=== PATIENT | female | born 1945 | race Caucasian/White ===

== ENCOUNTER → 2016-11-29 | Outpatient (CLI) | payer BC ==
[~2016-11-29] MED LIST: ASPI81TA28 PO; ATOR-22 PO; CRDCD120 PO; POLY335019 PO; POTASSIUM CITRATE PO; VITAMIN D PO
[2016-11-29 12:20] LABS: BASO % 0.6 %; BASO ABS # 0.04 K/uL (0-0.2); COMPLETE YES; EOS % 2.6 %; HEMATOCRIT 43.2 % (37-47); IG% 0.1 %; LYMPH % 35.7 %; LYMPH ABS # 2.56 K/uL (1.2-3.4); MEAN CELL VOLUME 91.7 fL (80-100); MEAN CORPUSCULAR HEMOGLOBIN 31.4 pg (25-34); MEAN CORPUSCULAR HGB CONC 34.3 g/dl (32-36); MEAN PLATELET VOLUME 9.7 fL (7.4-10.4); MONO % 11.7 %; NEUT % 49.3 %; PLATELET COUNT 339 K/uL (130-400); RED BLOOD COUNT 4.71 M/uL (4.2-5.4); WHITE BLOOD COUNT 7.17 K/uL (4.8-10.8)
[2016-11-29 12:59] LABS: ESTIMATED AVERAGE GLUCOSE 120 mg/dl; HA1C FLAG Normal (Normal)
[2016-11-29 14:45] LABS: BLOOD UREA NITROGEN 23 mg/dl (7-18); BUN/CREATININE RATIO 24.1 (10-20); CALCIUM 8.8 mg/dl (8.5-10.1); CARBON DIOXIDE 23 mmol/L (21-32); CHLORIDE 109 mmol/L (98-107); CREATININE 0.94 mg/dl (0.60-1.20); GLUCOSE 100 mg/dl (70-99); POTASSIUM 3.8 mmol/L (3.5-5.1); SODIUM 143 mmol/L (136-145)
[2016-11-29 14:53] LABS: IMMUNOGLOBULN A 81.4 mg/dL (70-400); IMMUNOGLOBULN M 82.4 mg/dL (40-230)
[2016-11-29 15:02] LABS: ALB/GLOB RATIO 1.3 (0.9-2); ALKALINE PHOSPHATASE 114 U/L (45-117); ALT/SGPT 55 U/L (12-78); AST/SGOT 27 U/L (15-37); CHOLESTEROL 136 mg/dl (0-200); CHOLESTEROL/HDL RATIO 2.8; HDL CHOLESTEROL 48 mg/dl; LDL CHOLESTEROL CALCULATED 68 mg/dl; TRIGLYCERIDES 100 mg/dl (0-150); VERY LOW DENSITY LIPOPROT CALC 20 mg/dl
== END | disposition home or self-care (01) ==
LOC: C.LABPVFM 07:52
PROVIDERS: ATTEND Nurse Practitioner Family
DX: E78.00 Pure hypercholesterolemia, unspecified (principal); I10 Essential (primary) hypertension; R73.01 Impaired fasting glucose; E55.9 Vitamin D deficiency, unspecified

== ENCOUNTER → 2017-08-01 | Outpatient (CLI) | payer BC ==
[2017-08-01 13:56] LABS: CHOLESTEROL/HDL RATIO 3.2
== END | disposition home or self-care (01) ==
LOC: C.LABPVFM 07:25
PROVIDERS: ATTEND Family Medicine
DX: E78.00 Pure hypercholesterolemia, unspecified (principal); J45.909 Unspecified asthma, uncomplicated; E55.9 Vitamin D deficiency, unspecified; R73.01 Impaired fasting glucose; I10 Essential (primary) hypertension

== ENCOUNTER → 2017-08-03 | Outpatient (CLI) | payer BC ==
--- NOTE | 2017-08-03 14:26 | MAMMOGRAPHY REPORT ---
BILATERAL DIGITAL DIAGNOSTIC MAMMOGRAM TOMOSYNTHESIS WITH CAD AND TARGETED LEFT ULTRASOUND: 7 CLINICAL HISTORY: 72-year-old woman presents with reported lumps in the left upper outer quadrant. H istory of prior remote left breast excisional biopsy, which yielded benign pathology. Also time of a nnual bilateral screening exam. TECHNIQUE: Bilateral breast tomosynthesis in addition to standard 2D mammography was performed. A 2- D left exaggerated lateral CC view was also obtained. Current study was also evaluated with a Comput er Aided Detection (CAD) system. COMPARISON: Comparison is made to exams dated: 09/08/2016 mammogram, 08/27/2015 mammogram, 5 ultrasound, 02/21/2015 mammogram, 07/25/2014 ultrasound, and 07/25/2014 mammogram - [facility]. BREAST COMPOSITION: The tissue of both breasts is heterogeneously dense, which may obscure small mas ses. FINDINGS: 2 triangle markers were placed on the skin in the left upper outer quadrant, denoting the areas of lumps pointed out by the patient. A linear scar marker also overlies the superior middle to posterior left breast. There is expected architectural distortion in the superior posterior left br east on the MLO view (tomosynthesis slice 17/54), deep to the linear scar marker, compatible with pos tsurgical distortion. No obvious new mass, asymmetry, new microcalcifications or unexpected architec tural distortion is seen bilaterally, with particular attention to the areas of lumps pointed out by the patient. There are diffuse bilateral round and punctate benign-appearing microcalcifications. Targeted ultrasound was performed in the area of palpable lumps pointed out by the patient, within th e 2:00 left breast, 3 cm from the nipple. On palpation, there is a prominent one and a half centimet er soft nodular area, in the area of concern. On ultrasound while scanning over this nodular area, t here is sonographically normal tissue without evidence of a suspicious solid or cystic mass. Inciden jose eduardo note is made of numerous subcentimeter anechoic cysts in the left upper outer quadrant, compatibl e with benign fibrocystic changes. IMPRESSION: ACR BI-RADS CATEGORY 2: BENIGN, TARGETED ULTRASOUND ACR BI-RADS CATEGORY 2: BENIGN 1. Stable bilateral mammograms, without mammographic or targeted sonographic evidence of malignancy. 2. No suspicious mammographic or sonographic abnormality in the area of lumps pointed out by the pat ient, which are located near an area of prior surgery. This region has the appearance of normal emelyn st tissue on ultrasound. Therefore, clinical follow-up is recommended, as biopsy of a clinically brennan picious mass should not be precluded by negative imaging. These results and recommendations were discussed with the patient and her at the time of the exam. Approximately 10% of breast cancers are not detected with mammography. A negative mammographic report should not delay biopsy if a clinically suggestive mass is present. Amaris Sung M.D. ay/:08/03/2017 13:35:10 Obstetrical Anesthesiologist: Flaca Thomas, [facility] letter sent: Normal 1/2 BI-RADS Code: ACR BI-RADS Category 2: Benign Ultrasound BI-RADS: ACR BI-RADS Category 2: Benign
== END | disposition home or self-care (01) ==
LOC: C.MAMM 12:37
PROVIDERS: ATTEND Obstetrics & Gynecology
DX: N64.59 Other signs and symptoms in breast (principal)

== ENCOUNTER → 2018-02-10 | Outpatient (CLI) | payer BC ==
[2018-02-10 13:48] LABS: ALBUMIN 3.6 gm/dl (3.4-5.0); ALT/SGPT 37 U/L (12-78); AST/SGOT 25 U/L (15-37); BLOOD UREA NITROGEN 20 mg/dl (7-18); CARBON DIOXIDE 29 mmol/L (21-32); CHOLESTEROL 129 mg/dl (0-200); CREATININE 0.95 mg/dl (0.60-1.20); GLUCOSE 108 mg/dl (70-99); POTASSIUM 3.9 mmol/L (3.5-5.1); SODIUM 142 mmol/L (136-145)
[2018-02-10 13:50] LABS: ALKALINE PHOSPHATASE 121 U/L (45-117); LDL CHOLESTEROL CALCULATED 69 mg/dl; TOTAL PROTEIN 6.8 gm/dl (6.4-8.2)
== END | disposition home or self-care (01) ==
LOC: C.LABPVFM 07:24
PROVIDERS: ATTEND Family Medicine
DX: E78.00 Pure hypercholesterolemia, unspecified (principal); I10 Essential (primary) hypertension; R73.01 Impaired fasting glucose; E55.9 Vitamin D deficiency, unspecified

== ENCOUNTER → 2018-02-24 | Outpatient (CLI) | payer BC ==
--- NOTE | 2018-02-24 07:33 | DIAGNOSTIC IMAGING REPORT ---
KUB HISTORY: Follow-up study in a patient with nephrolithiasis N20.0 [id number] COMPARISON: KUB 06/11/2016. FINDINGS: The bowel gas pattern is non-obstructive. There is moderate stool volume about the right hemicolon and transverse colon. There is no organomegaly. Renal shadows are obscured by bowel gas. No definite urolith identified. Vascular calcifications are seen about the pelvis. No pneumoperitoneum or pneumatosis. No fracture. Moderate degenerative changes about the bilateral hips. IMPRESSION: 1. Nonobstructive bowel gas pattern. 2. Renal shadows are partially obscured by bowel gas. No renal or ureteral calculi identified. Electronically signed by: Lawson Longo M.D. 02/24/2018 7:31 AM Dictated Date/Time: 02/24/2018 7:30 AM
== END | disposition home or self-care (01) ==
LOC: C.RAD 06:54
PROVIDERS: ATTEND Urology
DX: N20.0 Calculus of kidney (principal)

== ENCOUNTER 2023-01-15 13:54 | Observation (INO) ==
--- NOTE | 2023-01-15 14:37 | Emergency Department Note ---
History of Present Illness General Chief complaint: Weakness Time Seen by Provider: 01/15/23 14:05 Source: patient and family (Son at bedside and patient's who is a patient in the adjacent bed) History of Present Illness Provider complaint: Fall weakness slurred speech 77-year-old female presents emergency department for fall weakness and slurred speech. Son is at bedside with his mother who is the patient as well as her father who is in the adjacent bed as the patient also. Son reports that the patient fell and hit her head at 1230. She states that after this occurred she was having some slurred speech and difficulty getting up to walk. She states she called out to her to call out to son who called EMS. Patient reports that her symptoms have now resolved. Patient reports that she has been feeling increasingly weak over the last 2 days. Patient reports she was on the ground for only 40 minutes. She reports a temperature of 100.1 as a Tmax yesterday. Patient reports that her was recently diagnosed with influenza A yesterday. No blood thinners. Home Medications Medication Instructions Recorded Confirmed Type cholecalciferol (vitamin D3) 50 4,000 units PO DAILY 08/24/19 01/15/23 History mcg (2,000 unit) capsule polyethylene glycol 3350 17 See Rx Instructions PO QAM 08/24/19 01/15/23 History gram/dose oral powder atorvastatin 20 mg tablet 20 mg PO HS #90 tabs 11/29/22 01/15/23 Rx diltiazem HCl 120 mg 120 mg PO DAILY #90 caps 11/29/22 01/15/23 Rx capsule,extended release 24 hr losartan 50 mg tablet 50 mg PO DAILY #90 tabs 11/29/22 01/15/23 Rx aspirin 81 mg tablet,delayed 81 mg PO DAILY 01/15/23 01/15/23 History release Allergies Allergy/AdvReac Type Severity Reaction Status Date / Time adhesive Allergy Unknown SKIN Verified 01/15/23 17:28 BLISTERS codeine AdvReac Unknown GI UPSET Verified 01/15/23 17:28 Past Med/Surg History Medical History Asthma Low Back Pain Peripheral neuropathy Postmenopausal disorder Screening for osteoporosis Urge and stress incontinence Surgical History Hx of breast surgery Benign lump removed Hx of cataract surgery Hx of eye surgery Cyst Removal on Eye Hx of hysterectomy Family History Mother Myocardial infarction Denies family history of Ovarian cancer Prostate cancer Breast cancer Colorectal cancer Social History Smoking Status: Never smoker Second Hand Exposure: No; Hx Alcohol Use: Yes Alcohol type: wine Alcohol Intake Frequency: Monthly or Less Hx Substance Use: No Preferred Language: Portuguese Communication Ability: Effective Visual Impairment: No Limitations Hearing Ability: Normal Inspector Tubes Required: No Beliefs That Will Affect Care: None marital status: Current Living Situation: Spouse current occupational status: retired How many Children do You have: 3 Feels Safe at Home: Yes Childhood Exposure to Second-Hand Smoke: Yes caffeine: Yes during the past year weight has: remained stable Dental Care, Regularly: Yes Physical Activity Frequency: Daily Seatbelt Use: always Sunscreen Use: No Do you think of yourself as: straight/heterosexual Gender Identity: Female Assistive Devices: None Physical Exam Vital Signs Vital Signs - 24 hr 01/15/23 14:03 01/15/23 14:27 01/15/23 15:06 Temperature 37.1 C Temperature Source Oral Pulse Rate 90 93 H Pulse Rate [Right Finger] 107 H Pulse Rate from SpO2 Sensor Pulse Rhythm Regular Pulse Rhythm [Right Finger] Regular Pulse Strength Normal Pulse Strength [Right Finger] Normal Respiratory Rate 18 28 H Respiratory Effort / Characteristics Non-Labored Non-Labored Spontaneous Respiratory Depth Normal Normal Respiratory Pattern Regular Regular Blood Pressure 194/93 H Blood Pressure [Right Arm] 199/105 H Blood Pressure Mean 126 Blood Pressure Mean [Right Arm] 136 Blood Pressure Position Lying Blood Pressure Position [Right Arm] Sitting Pulse Oximetry 96 96 Oxygen Delivery Method Room Air Room Air Sepsis Recent Fever Within 48 Hours No Sepsis New/Unexplained Change in Mental Status No Sepsis Action Taken by Nursing No Action Required 01/15/23 14:18 01/15/23 14:20 01/15/23 14:30 Temperature Temperature Source Pulse Rate 89 95 H 90 Pulse Rate [Right Finger] Pulse Rate from SpO2 Sensor 90 95 H 91 H Pulse Rhythm Pulse Rhythm [Right Finger] Pulse Strength Pulse Strength [Right Finger] Respiratory Rate 20 18 22 Respiratory Effort / Characteristics Respiratory Depth Respiratory Pattern Blood Pressure Blood Pressure [Right Arm] Blood Pressure Mean Blood Pressure Mean [Right Arm] Blood Pressure Position Blood Pressure Position [Right Arm] Pulse Oximetry 98 98 96 Oxygen Delivery Method Sepsis Recent Fever Within 48 Hours Sepsis New/Unexplained Change in Mental Status Sepsis Action Taken by Nursing 01/15/23 14:31 01/15/23 14:31 01/15/23 14:40 Temperature Temperature Source Pulse Rate 91 H 83 Pulse Rate [Right Finger] Pulse Rate from SpO2 Sensor 91 H 84 Pulse Rhythm Pulse Rhythm [Right Finger] Pulse Strength Pulse Strength [Right Finger] Respiratory Rate 18 18 Respiratory Effort / Characteristics Respiratory Depth Respiratory Pattern Blood Pressure 175/112 H Blood Pressure [Right Arm] Blood Pressure Mean 133 Blood Pressure Mean [Right Arm] Blood Pressure Position Blood Pressure Position [Right Arm] Pulse Oximetry 96 96 Oxygen Delivery Method Sepsis Recent Fever Within 48 Hours Sepsis New/Unexplained Change in Mental Status Sepsis Action Taken by Nursing 01/15/23 14:50 01/15/23 15:05 01/15/23 15:05 Temperature Temperature Source Pulse Rate 86 98 H Pulse Rate [Right Finger] Pulse Rate from SpO2 Sensor 98 H Pulse Rhythm Pulse Rhythm [Right Finger] Pulse Strength Pulse Strength [Right Finger] Respiratory Rate 23 18 Respiratory Effort / Characteristics Respiratory Depth Respiratory Pattern Blood Pressure 199/105 H Blood Pressure [Right Arm] Blood Pressure Mean 136 Blood Pressure Mean [Right Arm] Blood Pressure Position Blood Pressure Position [Right Arm] Pulse Oximetry 97 Oxygen Delivery Method Sepsis Recent Fever Within 48 Hours Sepsis New/Unexplained Change in Mental Status Sepsis Action Taken by Nursing 01/15/23 15:10 01/15/23 15:20 01/15/23 15:30 Temperature Temperature Source Pulse Rate 86 90 Pulse Rate [Right Finger] Pulse Rate from SpO2 Sensor 86 87 Pulse Rhythm Pulse Rhythm [Right Finger] Pulse Strength Pulse Strength [Right Finger] Respiratory Rate 18 19 Respiratory Effort / Characteristics Respiratory Depth Respiratory Pattern Blood Pressure 163/100 H Blood Pressure [Right Arm] Blood Pressure Mean 121 Blood Pressure Mean [Right Arm] Blood Pressure Position Blood Pressure Position [Right Arm] Pulse Oximetry 95 96 Oxygen Delivery Method Sepsis Recent Fever Within 48 Hours Sepsis New/Unexplained Change in Mental Status Sepsis Action Taken by Nursing 01/15/23 15:30 01/15/23 15:40 01/15/23 16:30 Temperature Temperature Source Pulse Rate 92 H 85 86 Pulse Rate [Right Finger] Pulse Rate from SpO2 Sensor 87 85 86 Pulse Rhythm Pulse Rhythm [Right Finger] Pulse Strength Pulse Strength [Right Finger] Respiratory Rate 24 20 11 L Respiratory Effort / Characteristics Respiratory Depth Respiratory Pattern Blood Pressure Blood Pressure [Right Arm] Blood Pressure Mean Blood Pressure Mean [Right Arm] Blood Pressure Position Blood Pressure Position [Right Arm] Pulse Oximetry 93 95 98 Oxygen Delivery Method Sepsis Recent Fever Within 48 Hours Sepsis New/Unexplained Change in Mental Status Sepsis Action Taken by Nursing 01/15/23 16:31 01/15/23 16:31 01/15/23 16:40 Temperature Temperature Source Pulse Rate 88 85 Pulse Rate [Right Finger] Pulse Rate from SpO2 Sensor 89 85 Pulse Rhythm Pulse Rhythm [Right Finger] Pulse Strength Pulse Strength [Right Finger] Respiratory Rate 17 20 Respiratory Effort / Characteristics Respiratory Depth Respiratory Pattern Blood Pressure 184/74 H Blood Pressure [Right Arm] Blood Pressure Mean 110 Blood Pressure Mean [Right Arm] Blood Pressure Position Blood Pressure Position [Right Arm] Pulse Oximetry 97 95 Oxygen Delivery Method Sepsis Recent Fever Within 48 Hours Sepsis New/Unexplained Change in Mental Status Sepsis Action Taken by Nursing 01/15/23 16:50 01/15/23 17:00 01/15/23 17:00 Temperature Temperature Source Pulse Rate 84 84 Pulse Rate [Right Finger] Pulse Rate from SpO2 Sensor 83 84 Pulse Rhythm Pulse Rhythm [Right Finger] Pulse Strength Pulse Strength [Right Finger] Respiratory Rate 19 19 Respiratory Effort / Characteristics Respiratory Depth Respiratory Pattern Blood Pressure 178/76 H Blood Pressure [Right Arm] Blood Pressure Mean 110 Blood Pressure Mean [Right Arm] Blood Pressure Position Blood Pressure Position [Right Arm] Pulse Oximetry 98 96 Oxygen Delivery Method Sepsis Recent Fever Within 48 Hours Sepsis New/Unexplained Change in Mental Status Sepsis Action Taken by Nursing Physical Exam GENERAL: She is oriented to person, place, and time. She appears well-developed and well-nourished. She does not appear distressed. HENT: Exam performed. -Head: Normocephalic and atraumatic. -Right Ear: External ear normal. No mastoid erythema -Left Ear: External ear normal. No mastoid erythema EYES: Conjunctivae and EOM are normal.Right eye exhibits no discharge. Left eye exhibits no discharge. No scleral icterus. NECK: Normal range of motion. Neck supple. No spinous process tenderness present.No tracheal deviation and normal range of motion present. CV: Normal rate, regular rhythm, normal heart sounds and intact distal pulses. There is no peripheral edema. Palpable radial pulses bue. PULM/CHEST: Effort normal and breath sounds normal. No respiratory distress. No stridor. She has no wheezes. She has no rales. ABD: The abdomen is soft. There is no tenderness. There is no rebound, no guarding MUSC/SKEL: Normal range of motion. There is no tenderness or deformity. LYMPH: No cervical adenopathy. NEURO:NIHSS: 0 SKIN: Skin is warm and dry. She is not diaphoretic. PSYCH: She has a normal mood and affect. Behavior is normal. Judgment and thought content normal. Course Course 1405: The patient was evaluated in room A9A. A complete history and physical exam was performed Cardiac monitoring: An order was placed for continuous cardiac monitoring. The monitor shows a rate of 80 with sinus rhythm interpreted by la 1645: Vital signs stable. On reassessment the patient has no focal neurological deficits no meningeal signs. Labs are within normal limits with the exception of an influenza A positive PCR. CT imaging shows no traumatic injuries no large vessel occlusion on CT angio head and neck no ICH. Patient NIH SS is 0. Patient will be admitted to the hospitalist team [facility] for TIA. Dr. Moreira will be notified. Administered Medications Discontinued Medications Acetaminophen (Acetaminophen 325 Mg Tab) 650 mg PO NOW STA Stop: 01/15/23 19:09 Last Admin: 01/15/23 19:31 Dose: 650 mg Documented By: NAHED Ioversol (Optiray 320 500ml) 114 ml IV ONCE ONE Stop: 01/15/23 16:00 Last Admin: 01/15/23 16:00 Dose: 114 ml Documented By: TERRY Losartan Potassium (Losartan Potassium 50 Mg Tab) 50 mg PO NOW STA Stop: 01/15/23 18:25 Last Admin: 01/15/23 19:32 Dose: 50 mg Documented By: NAHED Medical Decision Making Laboratory Data Attestation: I reviewed the patient's lab results. 01/15/23 14:10 01/15/23 14:10 Lab Results 01/15/23 01/15/23 01/15/23 Range/Units 14:10 14:10 14:10 WBC 4.88 (4.8-10.8) K/ul RBC 4.42 (4.20-5.40) M/uL Hgb 14.1 (12.0-16.0) g/dl Hct 40.0 (37.0-47.0) % MCV 90.5 (80.0-100.0) fL MCH 31.9 (25.0-34.0) pg MCHC 35.3 (32.0-36.0) g/dL RDW Std Deviation 42.5 (36.4-46.3) fL RDW Coeff of Rigoberto 12.8 (11.5-14.5) % Plt Count 225 (130-400) K/uL MPV 9.3 L (9.4-12.4) fL Immature Gran % (Auto) 0.2 % Neut % (Auto) 68.9 % Lymph % (Auto) 14.1 % [place] % (Auto) 15.0 % Eos % (Auto) 0.6 % Baso % (Auto) 1.2 % Neut # (Auto) 3.36 (1.40-6.50) K/uL Lymph # (Auto) 0.69 L (1.2-3.4) K/uL [place] # (Auto) 0.73 H (0.11-0.59) K/uL Eos # (Auto) 0.03 (0-0.50) K/uL Baso # (Auto) 0.06 (0-0.2) K/uL Immature Gran # (Auto) 0.01 (0.01-0.20) K/uL PT 10.6 (9.0-12.0) Seconds INR 1.0 (0.9-1.1) APTT 23.9 (21.0-31.0) Seconds PTT Ratio 0.9 VBG pH (7.36-7.41) VBG pCO2 (38-50) mmHg VBG pO2 mmHg VBG HCO3 mmol/L VBG O2 Saturation % VBG Base Excess mEq/L Sodium 134 L (136-145) mmol/L Potassium 3.5 (3.5-5.1) mmol/L Chloride 101 (98-107) mmol/L Carbon Dioxide 23 (21-32) mmol/L Anion Gap 10 (3-11) BUN 18 (6-23) mg/dl Creatinine 0.93 (0.6-1.2) mg/dl Est Cr Clr Drug Dosing 45.2 ml/min Est GFR ( Amer) 68.2 ml/min Est GFR (Non-Af Amer) 58.9 ml/min BUN/Creatinine Ratio 19.4 (10-20) Glucose 112 H (70-99(Fasting)) mg/dl POC Glucose (70-99) mg/dl Lactate (0.4-2.0) mmol/L Calcium 8.9 (8.6-10.3) mg/dl Magnesium 1.9 (1.7-2.4) mg/dl Total Bilirubin 0.6 (0.2-1.0) mg/dl AST 21 (13-39) U/L ALT 20 (7-52) U/L Alkaline Phosphatase 91 (34-104) U/L Troponin I High Sens 9.6 (0-14) pg/ml Total Protein 6.3 (6.0-8.3) gm/dl Albumin 4.1 (3.4-5.0) gm/dl Globulin 2.2 L (2.5-4.0) gm/dl Albumin/Globulin Ratio 1.9 (0.9-2) SARS-CoV-2 (PCR) (Negative) Influenza Type A (PCR) (Neg) Influenza Type B (PCR) (Neg) RSV (RT-PCR) (Neg) Blood Type Antibody Screen 01/15/23 01/15/23 01/15/23 Range/Units 14:36 14:38 14:38 WBC (4.8-10.8) K/ul RBC (4.20-5.40) M/uL Hgb (12.0-16.0) g/dl Hct (37.0-47.0) % MCV (80.0-100.0) fL MCH (25.0-34.0) pg MCHC (32.0-36.0) g/dL RDW Std Deviation (36.4-46.3) fL RDW Coeff of Rigoberto (11.5-14.5) % Plt Count (130-400) K/uL MPV (9.4-12.4) fL Immature Gran % (Auto) % Neut % (Auto) % Lymph % (Auto) % [place] % (Auto) % Eos % (Auto) % Baso % (Auto) % Neut # (Auto) (1.40-6.50) K/uL Lymph # (Auto) (1.2-3.4) K/uL [place] # (Auto) (0.11-0.59) K/uL Eos # (Auto) (0-0.50) K/uL Baso # (Auto) (0-0.2) K/uL Immature Gran # (Auto) (0.01-0.20) K/uL PT (9.0-12.0) Seconds INR (0.9-1.1) APTT (21.0-31.0) Seconds PTT Ratio VBG pH (7.36-7.41) VBG pCO2 (38-50) mmHg VBG pO2 mmHg VBG HCO3 mmol/L VBG O2 Saturation % VBG Base Excess mEq/L Sodium (136-145) mmol/L Potassium (3.5-5.1) mmol/L Chloride (98-107) mmol/L Carbon Dioxide (21-32) mmol/L Anion Gap (3-11) BUN (6-23) mg/dl Creatinine (0.6-1.2) mg/dl Est Cr Clr Drug Dosing ml/min Est GFR ( Amer) ml/min Est GFR (Non-Af Amer) ml/min BUN/Creatinine Ratio (10-20) Glucose (70-99(Fasting)) mg/dl POC Glucose 101 H (70-99) mg/dl Lactate 1.2 (0.4-2.0) mmol/L Calcium (8.6-10.3) mg/dl Magnesium (1.7-2.4) mg/dl Total Bilirubin (0.2-1.0) mg/dl AST (13-39) U/L ALT (7-52) U/L Alkaline Phosphatase (34-104) U/L Troponin I High Sens (0-14) pg/ml Total Protein (6.0-8.3) gm/dl Albumin (3.4-5.0) gm/dl Globulin (2.5-4.0) gm/dl Albumin/Globulin Ratio (0.9-2) SARS-CoV-2 (PCR) (Negative) Influenza Type A (PCR) (Neg) Influenza Type B (PCR) (Neg) RSV (RT-PCR) (Neg) Blood Type A Positive Antibody Screen NEGATIVE 01/15/23 01/15/23 Range/Units 14:38 14:43 WBC (4.8-10.8) K/ul RBC (4.20-5.40) M/uL Hgb (12.0-16.0) g/dl Hct (37.0-47.0) % MCV (80.0-100.0) fL MCH (25.0-34.0) pg MCHC (32.0-36.0) g/dL RDW Std Deviation (36.4-46.3) fL RDW Coeff of Rigoberto (11.5-14.5) % Plt Count (130-400) K/uL MPV (9.4-12.4) fL Immature Gran % (Auto) % Neut % (Auto) % Lymph % (Auto) % [place] % (Auto) % Eos % (Auto) % Baso % (Auto) % Neut # (Auto) (1.40-6.50) K/uL Lymph # (Auto) (1.2-3.4) K/uL [place] # (Auto) (0.11-0.59) K/uL Eos # (Auto) (0-0.50) K/uL Baso # (Auto) (0-0.2) K/uL Immature Gran # (Auto) (0.01-0.20) K/uL PT (9.0-12.0) Seconds INR (0.9-1.1) APTT (21.0-31.0) Seconds PTT Ratio VBG pH 7.43 H (7.36-7.41) VBG pCO2 39 (38-50) mmHg VBG pO2 37 mmHg VBG HCO3 26 mmol/L VBG O2 Saturation 69.0 % VBG Base Excess 1.5 mEq/L Sodium (136-145) mmol/L Potassium (3.5-5.1) mmol/L Chloride (98-107) mmol/L Carbon Dioxide (21-32) mmol/L Anion Gap (3-11) BUN (6-23) mg/dl Creatinine (0.6-1.2) mg/dl Est Cr Clr Drug Dosing ml/min Est GFR ( Amer) ml/min Est GFR (Non-Af Amer) ml/min BUN/Creatinine Ratio (10-20) Glucose (70-99(Fasting)) mg/dl POC Glucose (70-99) mg/dl Lactate (0.4-2.0) mmol/L Calcium (8.6-10.3) mg/dl Magnesium (1.7-2.4) mg/dl Total Bilirubin (0.2-1.0) mg/dl AST (13-39) U/L ALT (7-52) U/L Alkaline Phosphatase (34-104) U/L Troponin I High Sens (0-14) pg/ml Total Protein (6.0-8.3) gm/dl Albumin (3.4-5.0) gm/dl Globulin (2.5-4.0) gm/dl Albumin/Globulin Ratio (0.9-2) SARS-CoV-2 (PCR) NEGATIVE (Negative) Influenza Type A (PCR) Positive A* (Neg) Influenza Type B (PCR) Negative (Neg) RSV (RT-PCR) Negative (Neg) Blood Type Antibody Screen Imaging Data Attestation: I personally reviewed and interpreted this imaging study as follows: My Impression: Chest x-ray negative. Airway clear. No pneumothorax. No consolidation. No cardiomegaly or cephalization.. No free air under the diaphragm. No fractures of the skeletal structures. Radiologist's Impression: Chest X-Ray 01/15/23 14:25 XR chest 1V portable CLINICAL HISTORY: neuro deficit, acute stroke suspected. Cough. Fever. COMPARISON STUDY: Chest radiograph November 29, 2011. FINDINGS: Lung volumes are normal. Lungs are clear. There is no pneumothorax or pleural effusion. Cardiac size is normal. Mediastinal contours are normal. There is no evidence for pulmonary edema. IMPRESSION: No acute cardiopulmonary findings. ACT 112: Negative or not required by law. Electronically signed by: Dre Vargas M.D. 01/15/2023 3:[address] 01/15/23 14:25 CT OF THE HEAD WITHOUT CONTRAST CLINICAL HISTORY: neuro deficit, acute stroke suspected COMPARISON STUDY: No previous studies for comparison. TECHNIQUE: Helical axial images of the head were obtained without IV contrast. Automated exposure control was utilized for the study. A dose lowering technique was utilized adhering to the principles of ALARA. FINDINGS: No acute intracranial hemorrhage, midline shift or mass effect is present. White matter hypodensity suggests small vessel disease. The ventricular system is unremarkable. The basal cisterns are patent. No extra-axial collections are present. There are no findings to suggest acute dural sinus thrombosis or acute territorial infarct. No significant calvarial abnormalities are present. Mild sinus mucosal thickening. IMPRESSION: No acute intracranial findings. ACT 112: Negative or not required by law. Electronically signed by: Dre Vargas M.D. 01/15/2023 4:17 PM Head CTA 01/15/23 14:25 CTA ANGIOGRAPHY OF THE HEAD CLINICAL HISTORY: neuro deficit, acute stroke suspected COMPARISON STUDY: No previous studies for comparison. TECHNIQUE: Helical axial images of the head were obtained following uneventful intravenous administration of 114 cc of Optiray. Sagittal and coronal reconstructions were viewed as well as maximal intensity projections on an independent 3-D workstation. Automated exposure control was utilized for the study. A dose lowering technique was utilized adhering to the principles of ALARA. FINDINGS: The head CT will be reported separately. No acute intracranial hemorrhage was identified on that exam. Ventricular system is unremarkable. Basal cisterns are patent. There is moderate plaque within the bilateral cavernous carotids without stenosis. No central vessel occlusion is identified on this examination. The left vertebral artery is dominant. There is mild to moderate stenoses of the intracranial portions of the bilateral vertebral arter ies. The basilar artery is patent. The bilateral posterior cerebral arteries are patent. Major dural sinuses are patent. IMPRESSION: 1. No central vessel occlusion. No intracranial aneurysm. 2. Moderate plaque within the intracranial vessels. Mild to moderate stenosis of the bilateral intracranial vertebral arteries. ACT 112: Negative or not required by law. Electronically signed by: Dre Vargas M.D. 01/15/2023 4:36 PM Neck CTA 01/15/23 14:25 CT ANGIOGRAPHY OF THE NECK WITH CONTRAST CLINICAL HISTORY: neuro deficit, acute stroke suspected COMPARISON STUDY: No previous studies for comparison. Technique: CT angiography of the carotid and vertebral arteries was obtained us ing Optiray and 3D reconstruction on an independent workstation. NASCET criteria was utilized. Automated exposure control was utilized for the study. A dose lowering technique was utilized adhering to the principles of ALARA. CT DOSE: 1137.41 mGy.cm Findings: Visualized portions of the lung apices are unremarkable. There is no acute cervical spine fracture. There is no cervical lymphadenopathy. A left lobe thyroid nodule is noted. This measures 2.5 cm in the AP dimension. The bilateral common carotid, cervical internal carotid and vertebral arteries are patent. There is mild plaque within these vessels. There is no stenosis. There is no aneurysm within the neck. IMPRESSION: No stenosis or dissection within the bilateral common carotid, cervical internal carotid or vertebral arteries. Mild atherosclerotic plaque. ACT 112: Negative or not required by law. Electronically signed by: Dre Vargas M.D. 01/15/2023 4:[address] 01/15/23 14:27 CT OF THE CERVICAL SPINE WITHOUT CONTRAST CLINICAL HISTORY: Fall. COMPARISON STUDY: Cervical spine radiographs September 04, 2010. TECHNIQUE: Helical axial images of the cervical spine were obtained without IV contrast. Sagittal and coronal reconstructions were viewed. Automated exposure control was utilized for the study. A dose lowering technique was utilized adhering to the principles of ALARA. FINDINGS: There is mild reversal of the cervical lordosis. Vertebral body heights are maintained. No acute cervical spine fracture or subluxation is present. There is no prevertebral edema. Facet joints are intact. Moderate multilevel degenerative changes within the cervical spine are present. IMPRESSION: No acute cervical spine fracture or subluxation. ACT 112: Negative or not required by law. Electronically signed by: Dre Vargas M.D. 01/15/2023 4:20 PM ECG Data Attestation: I personally reviewed and interpreted this ECG as follows: Rate (beats per minute): 84 Rhythm: + normal sinus ECG Intervals/blocks: + Normal QRS, + Normal [place] and + Normal QT-c ECG ST segments: + Normal ST segments MDM Narrative 1405: The patient was evaluated in room A9A. A complete history and physical exam was performed Cardiac monitoring: An order was placed for continuous cardiac monitoring. The monitor shows a rate of 80 with sinus rhythm interpreted by me 1645: Vital signs stable. On reassessment the patient has no focal neurological deficits no meningeal signs. Labs are within normal limits with the exception of an influenza A positive PCR. CT imaging shows no traumatic injuries no large vessel occlusion on CT angio head and neck no ICH. Patient NIH SS is 0. Patient will be admitted to the hospitalist team [facility] for TIA. Dr. Moreira will be notified. Impression & Plan Brain TIA Discharge Plan Visit Data Chief Complaint: Weakness ED Provider: Willy Ramos Discharge Problem: Brain TIA Patient Disposition: Admitted As Inpatient Discharge Instructions Interventions: ED Discharge Assessment Last Done: 01/15/23 19:59
[2023-01-15 14:40] LABS: Basophils # (auto) 0.06 K/uL (0-0.2); Basophils % (auto) 1.2 %; Eosinophils # (auto) 0.03 K/uL (0-0.50); Eosinophils % (auto) 0.6 %; Hemoglobin 14.1 g/dl (12.0-16.0); Immature Granulocytes # (auto) 0.01 K/uL (0.01-0.20); Immature Granulocytes % (auto) 0.2 %; Lymphocytes # (auto) 0.69 K/uL (1.2-3.4); Lymphocytes % (auto) 14.1 %; Mean Corpuscular Hemoglobin 31.9 pg (25.0-34.0); Mean Corpuscular Hgb Conc 35.3 g/dL (32.0-36.0); Mean Corpuscular Volume 90.5 fL (80.0-100.0); Mean Platelet Volume 9.3 fL (9.4-12.4); Monocytes # (auto) 0.73 K/uL (0.11-0.59); Neutrophils # (auto) 3.36 K/uL (1.40-6.50); Neutrophils % (auto) 68.9 %; Platelet Count 225 K/uL (130-400); RDW Coefficient of Variation 12.8 % (11.5-14.5); RDW Standard Deviation 42.5 fL (36.4-46.3); Red Blood Count 4.42 M/uL (4.20-5.40); White Blood Count 4.88 K/ul (4.8-10.8)
[2023-01-15 14:53] LABS: Base Excess VBG 1.5 mEq/L; HCO3 VBG 26 mmol/L; PCO2 VBG 39 mmHg (38-50); PO2 VBG 37 mmHg; pH VBG 7.43 (7.36-7.41)
[2023-01-15 14:56] LABS: Albumin Globulin Ratio 1.9 (0.9-2); Albumin Level 4.1 gm/dl (3.4-5.0); BUN Creatinine Ratio 19.4 (10-20); Bilirubin,Total 0.6 mg/dl (0.2-1.0); Calcium 8.9 mg/dl (8.6-10.3); Creatinine Clr Calc Pharmacy 45.2 ml/min; Est GFR (African American) 68.2 ml/min; Est GFR (Non-African American) 58.9 ml/min; Globulin 2.2 gm/dl (2.5-4.0); Magnesium 1.9 mg/dl (1.7-2.4); Potassium 3.5 mmol/L (3.5-5.1); Total Protein 6.3 gm/dl (6.0-8.3)
[2023-01-15 15:02] LABS: Troponin I High Sensitivity 9.6 pg/ml (0-14)
[2023-01-15 15:08] LABS: Partial Thromboplastin Ratio 0.9; Partial Thromboplastin Time 23.9 Seconds (21.0-31.0); Prothrombin Time 10.6 Seconds (9.0-12.0)
--- NOTE | 2023-01-15 15:21 | XRay Report ---
XR chest 1V portable CLINICAL HISTORY: neuro deficit, acute stroke suspected. Cough. Fever. COMPARISON STUDY: Chest radiograph November 29, 2011. FINDINGS: Lung volumes are normal. Lungs are clear. There is no pneumothorax or pleural effusion. Car diac size is normal. Mediastinal contours are normal. There is no evidence for pulmonary edema. IMPRESSION: No acute cardiopulmonary findings. ACT 112: Negative or not required by law. Electronically signed by: Dre Vargas M.D. 01/15/2023 3:20 PM
[2023-01-15 15:42] LABS: Influenza B virus by PCR Negative (Neg); RSV by PCR Negative (Neg); SARS CoV2 RNA(COVID-19) Ceph NEGATIVE (Negative)
[2023-01-15 15:45] LABS: Influenza A virus by PCR Positive (Neg)
[2023-01-15] MEDS ORDERED: OPTIRAY 320 500ml IV ONE (15:59)
--- NOTE | 2023-01-15 16:19 | CT Scan Report ---
CT OF THE HEAD WITHOUT CONTRAST CLINICAL HISTORY: neuro deficit, acute stroke suspected COMPARISON STUDY: No previous studies for comparison. TECHNIQUE: Helical axial images of the head were obtained without IV contrast. Automated exposure con trol was utilized for the study. A dose lowering technique was utilized adhering to the principles o f ALARA. FINDINGS: No acute intracranial hemorrhage, midline shift or mass effect is present. White matter hyp odensity suggests small vessel disease. The ventricular system is unremarkable. The basal cisterns ar e patent. No extra-axial collections are present. There are no findings to suggest acute dural sinus thrombosis or acute territorial infarct. No significant calvarial abnormalities are present. Mild sin us mucosal thickening. IMPRESSION: No acute intracranial findings. ACT 112: Negative or not required by law. Electronically signed by: Dre Vargas M.D. 01/15/2023 4:17 PM
--- NOTE | 2023-01-15 16:22 | CT Scan Report ---
CT OF THE CERVICAL SPINE WITHOUT CONTRAST CLINICAL HISTORY: Fall. COMPARISON STUDY: Cervical spine radiographs September 04, 2010. TECHNIQUE: Helical axial images of the cervical spine were obtained without IV contrast. Sagittal a nd coronal reconstructions were viewed. Automated exposure control was utilized for the study. A do se lowering technique was utilized adhering to the principles of ALARA. FINDINGS: There is mild reversal of the cervical lordosis. Vertebral body heights are maintained. No acute cervical spine fracture or subluxation is present. There is no prevertebral edema. Facet joints are intact. Moderate multilevel degenerative changes within the cervical spine are present. IMPRESSION: No acute cervical spine fracture or subluxation. ACT 112: Negative or not required by law. Electronically signed by: Dre Vargas M.D. 01/15/2023 4:20 PM
--- NOTE | 2023-01-15 16:31 | CT Scan Report ---
CT ANGIOGRAPHY OF THE NECK WITH CONTRAST CLINICAL HISTORY: neuro deficit, acute stroke suspected COMPARISON STUDY: No previous studies for comparison. Technique: CT angiography of the carotid and vertebral arteries was obtained using Optiray and 3D rec onstruction on an independent workstation. NASCET criteria was utilized. Automated exposure control was utilized for the study. A dose lowering technique was utilized adhering to the principles of ALA RA. CT DOSE: 1137.41 mGy.cm Findings: Visualized portions of the lung apices are unremarkable. There is no acute cervical spine f racture. There is no cervical lymphadenopathy. A left lobe thyroid nodule is noted. This measures 2.5 cm in the AP dimension. The bilateral common carotid, cervical internal carotid and vertebral arteri es are patent. There is mild plaque within these vessels. There is no stenosis. There is no aneurysm within the neck. IMPRESSION: No stenosis or dissection within the bilateral common carotid, cervical internal carotid or vertebral arteries. Mild atherosclerotic plaque. ACT 112: Negative or not required by law. Electronically signed by: Dre Vargas M.D. 01/15/2023 4:29 PM
--- NOTE | 2023-01-15 16:39 | CT Scan Report ---
CTA ANGIOGRAPHY OF THE HEAD CLINICAL HISTORY: neuro deficit, acute stroke suspected COMPARISON STUDY: No previous studies for comparison. TECHNIQUE: Helical axial images of the head were obtained following uneventful intravenous administr ation of 114 cc of Optiray. Sagittal and coronal reconstructions were viewed as well as maximal inten sity projections on an independent 3-D workstation. Automated exposure control was utilized for the study. A dose lowering technique was utilized adhering to the principles of ALARA. FINDINGS: The head CT will be reported separately. No acute intracranial hemorrhage was identified on that exam. Ventricular system is unremarkable. Basal cisterns are patent. There is moderate plaque w ithin the bilateral cavernous carotids without stenosis. No central vessel occlusion is identified on this examination. The left vertebral artery is dominant. There is mild to moderate stenoses of the i ntracranial portions of the bilateral vertebral arteries. The basilar artery is patent. The bilateral posterior cerebral arteries are patent. Major dural sinuses are patent. IMPRESSION: 1. No central vessel occlusion. No intracranial aneurysm. 2. Moderate plaque within the intracranial vessels. Mild to moderate stenosis of the bilateral intrac ranial vertebral arteries. ACT 112: Negative or not required by law. Electronically signed by: Der Vargas M.D. 01/15/2023 4:36 PM
--- NOTE | 2023-01-15 17:00 | History & Physical Report ---
Date of Service January 15, 2023 Assessment & Plan (1) Stroke-like symptoms: Plan: -Admit to med/tele -The patient is currently afebrile, Hypertensive at 184/85, and stable on RA -The patient experienced approximately 20-30 min of slurred speech after falling backwards and hitting her head off the ground earlier today -No neuro symptoms prior to the fall, she was trying to get up off the ground after sliding off her recliner -CT of the head and CTA of the neck were negative for acute findings, no ECG abnormalities -At this time it appears that her temporary slurred speech was likely the result of her fall and hitting her head, possibly a mild concussion -Will hold off on MRI of the brain and TTE at this time due to the history of her fall -The patient was able to ambulate to the bathroom without issues during my exam -q4h neuro checks, fall precautions -Continue to monitor on tele and pulse oximetry -BL SCD's and Sub-Q lovenox for DVT PPX -AM CBC, BMP (2) Generalized weakness: Plan: -Likely due to her acute illness and poor oral intake -No focal neuro defects on exam -Fall precautions, PT/OT consults placed (3) Influenza A: Plan: -Currently stable on RA -Symptoms started approximately 48 hours ago but the patient declined tamiflu -Supportive therapy with incentive spirometry, flutter therapy, prn DuoNebs and robitussin, prn O2 to keep SpO2 at or greater than 95% (4) HTN (hypertension): Plan: -Found to be hypertensive with systolics in the 190's in the ED -Still HTN at 184/85 -The patient takes her Losartan in the evening, will give her her dose now -Continue Losartan and Diltiazem (5) Hyperlipidemia: Plan: -Conitnue statin Plan The patient was discussed with Dr. Moreira at the time of the admission History of Present Illness Chief Complaint: Flu symptoms, fall, slurred speech Primary Care Provider: Paula Koo MD Adelaida is a 77 year old female with a PMH significant for HTN, Hyperlipidemia, vertigo, and peripheral neuropathy who presented to the [facility] ED on 01/15/23 with complaints of flu-like symptoms, fall, and slurred speech. In the ED the patient was found to be afebrile, hypertensive at 194/93, and stable on RA. CBC, CMP, High sen trop were all WNL. The patient was found to be Influenza A positive. Chest xray was clear. CT of the head was negative for acute findings. CTA of the head was read as "1. No central vessel occlusion. No intracranial aneurysm. 2. Moderate plaque within the intracranial vessels. Mild to moderate stenosis of the bilateral intracranial vertebral arteries.". CTA of the neck was read as "No stenosis or dissection within the bilateral common carotid, cervical internal carotid or vertebral arteries. Mild atherosclerotic plaque.". CT of the cervical spine was negative for acute findings. At the time of the exam the patient was lying in bed in no acute distress. Her is in the next bed as they are both being admitted. They are accompanied by their children, sitting bedside. The patient states that she started to develop flu-like symptoms including fever, chills, congestion, body aches, a productive cough with clear sputum, and generalized weakness. She states that she was sitting in her recliner earlier today and attempted to stand. She has chronic left leg pain due to IT band tightness. When standing her left leg gave out and she slid to the floor, landing on her buttocks. She denies hitting her head or losing consciousness at that time and denies any new pain from that fall. She attempted to stand but then fell backwards, hitting her head on the ground, she did not lose consciousness. She called out to her son who was in the house and came to her side. He noticed that she was slurring her words and she agrees. She denies being confused and knew she was slurring her words. The patient's son denies seeing any facial droop or unilateral weakness. The patient denies paresthesia or weakness. Her symptoms resolved prior to EMS arriving approximately 20-30 min after her fall. She current feels back to her baseline and denies head, neck, and back pain. She denies current chest pain, abd pain, nausea, vomiting, diarrhea, dysuria, hematuria, melena, LE swelling and other recent trauma. She is a DNR/DNI and would want her children to make medical decisions for her if she could not make them herself. Please refer to Dr. Moreira's attestation for any changes to the treatment plan Allergies Allergy/AdvReac Type Severity Reaction Status Date / Time adhesive Allergy Unknown SKIN Verified 01/15/23 17:28 BLISTERS codeine AdvReac Unknown GI UPSET Verified 01/15/23 17:28 Home Medications Medication Instructions Recorded Confirmed Type cholecalciferol (vitamin D3) 50 4,000 units PO DAILY 08/24/19 01/18/23 History mcg (2,000 unit) capsule polyethylene glycol 3350 17 See Rx Instructions PO QAM 08/24/19 01/18/23 History gram/dose oral powder diltiazem HCl 120 mg 120 mg PO DAILY #90 caps 11/29/22 01/18/23 Rx capsule,extended release 24 hr losartan 50 mg tablet 50 mg PO DAILY #90 tabs 11/29/22 01/18/23 Rx aspirin 81 mg tablet,delayed 81 mg PO DAILY 01/15/23 01/18/23 History release atorvastatin 40 mg tablet 40 mg PO DAILY #30 tabs 01/17/23 01/18/23 Rx clopidogrel 75 mg tablet 75 mg PO QAM #20 tabs 01/17/23 01/18/23 Rx Past Med/Surg History Medical History (Updated 01/25/23 @ 12:31 by Paula Koo MD) Asthma Low Back Pain Peripheral neuropathy Postmenopausal disorder Screening for osteoporosis Thyroid nodule Urge and stress incontinence Surgical History Hx of breast surgery Benign lump removed Hx of cataract surgery Hx of eye surgery Cyst Removal on Eye Hx of hysterectomy Family History Mother Myocardial infarction Denies family history of Ovarian cancer Prostate cancer Breast cancer Colorectal cancer Social History Smoking Status: Never smoker Second Hand Exposure: No; Hx Alcohol Use: Yes Alcohol type: wine Alcohol Intake Frequency: Monthly or Less Hx Substance Use: No Preferred Language: Lao Communication Ability: Effective Visual Impairment: No Limitations Hearing Ability: Normal Academic Interventionist Required: No Beliefs That Will Affect Care: None marital status: Current Living Situation: Spouse and Family current occupational status: retired How many Children do You have: 3 Feels Safe at Home: Yes Childhood Exposure to Second-Hand Smoke: Yes caffeine: Yes during the past year weight has: remained stable Dental Care, Regularly: Yes Physical Activity Frequency: Daily Seatbelt Use: always Sunscreen Use: No Do you think of yourself as: straight/heterosexual Gender Identity: Female Assistive Devices: Glasses Physical Exam Physical Exam: Physical Exam: General: In no acute distress, stated age, well-nourished, good hygiene HEENT: Normocephalic, atraumatic, no scleral icterus, pupils around round, symmetrical, and reactive to light, moist mucus membranes, trachea midline, no thyromegaly Chest/Pulm: No respiratory distress, symmetrical chest expansion, expiratory wheezing noted in the BL lower lung koch Cardiac: RRR, no murmurs noted Abdomen: Negative for ascites and bruising, normoactive bowel sounds, soft, non-tender to palpation throughout Musculoskeletal: Not trauma or tenderness to palpation of the head or neck, able to move upper and lower extremities without pain or limitation Extremities: Radial, dorsalis pedis, and posterior tibial pulses are intact and symmetrical, no edema noted in the BL LE's Skin: Warm, dry, no rashes , lesions, or scars noted Neuro: Alert and oriented to person, place, month, year, and president, no focal defects, CN II-XII tested and intact, finger to nose test negative, negative pronator drift, no tremors noted Psych: No acute distress, calm and cooperative during the exam Results & Data Results & Data Vital Signs (Past 12 Hours) Vital Signs Temp Pulse Pulse Resp BP BP Pulse Ox 01/15/23 15:10 86 18 95 01/15/23 15:05 98 H 18 97 01/15/23 15:05 199/105 H 01/15/23 14:50 86 23 01/15/23 14:40 83 18 96 01/15/23 14:31 91 H 18 96 01/15/23 14:31 175/112 H 01/15/23 14:30 90 22 96 01/15/23 14:20 95 H 18 98 01/15/23 14:18 89 20 98 01/15/23 15:06 107 H 28 H 199/105 H 96 01/15/23 14:27 93 H 01/15/23 14:03 37.1 C 90 18 194/93 H 96 O2 Del Method 01/15/23 15:10 01/15/23 15:05 01/15/23 15:05 01/15/23 14:50 01/15/23 14:40 01/15/23 14:31 01/15/23 14:31 01/15/23 14:30 01/15/23 14:20 01/15/23 14:18 01/15/23 15:06 Room Air 01/15/23 14:27 01/15/23 14:03 Room Air Laboratory Results Abnormal lab results 01/15/23 01/15/23 01/15/23 Range/Units 14:10 14:10 14:36 MPV 9.3 L (9.4-12.4) fL Lymph # (Auto) 0.69 L (1.2-3.4) K/uL [place] # (Auto) 0.73 H (0.11-0.59) K/uL VBG pH (7.36-7.41) Sodium 134 L (136-145) mmol/L Glucose 112 H (70-99(Fasting)) mg/dl POC Glucose 101 H (70-99) mg/dl Globulin 2.2 L (2.5-4.0) gm/dl Influenza Type A (PCR) (Neg) 01/15/23 01/15/23 Range/Units 14:38 14:43 MPV (9.4-12.4) fL Lymph # (Auto) (1.2-3.4) K/uL [place] # (Auto) (0.11-0.59) K/uL VBG pH 7.43 H (7.36-7.41) Sodium (136-145) mmol/L Glucose (70-99(Fasting)) mg/dl POC Glucose (70-99) mg/dl Globulin (2.5-4.0) gm/dl Influenza Type A (PCR) Positive A* (Neg) Diagnostic Findings Chest X-Ray 01/15/23 14:25 XR chest 1V portable CLINICAL HISTORY: neuro deficit, acute stroke suspected. Cough. Fever. COMPARISON STUDY: Chest radiograph November 29, 2011. FINDINGS: Lung volumes are normal. Lungs are clear. There is no pneumothorax or pleural effusion. Cardiac size is normal. Mediastinal contours are normal. There is no evidence for pulmonary edema. IMPRESSION: No acute cardiopulmonary findings. ACT 112: Negative or not required by law. Electronically signed by: Dre Vargas M.D. 01/15/2023 3:[address] 01/15/23 14:25 CT OF THE HEAD WITHOUT CONTRAST CLINICAL HISTORY: neuro deficit, acute stroke suspected COMPARISON STUDY: No previous studies for comparison. TECHNIQUE: Helical axial images of the head were obtained without IV contrast. Automated exposure control was utilized for the study. A dose lowering technique was utilized adhering to the principles of ALARA. FINDINGS: No acute intracranial hemorrhage, midline shift or mass effect is present. White matter hypodensity suggests small vessel disease. The ventricular system is unremarkable. The basal cisterns are patent. No extra-axial collections are present. There are no findings to suggest acute dural sinus thrombosis or acute territorial infarct. No significant calvarial abnormalities are present. Mild sinus mucosal thickening. IMPRESSION: No acute intracranial findings. ACT 112: Negative or not required by law. Electronically signed by: Dre Vargas M.D. 01/15/2023 4:17 PM Head CTA 01/15/23 14:25 CTA ANGIOGRAPHY OF THE HEAD CLINICAL HISTORY: neuro deficit, acute stroke suspected COMPARISON STUDY: No previous studies for comparison. TECHNIQUE: Helical axial images of the head were obtained following uneventful intravenous administration of 114 cc of Optiray. Sagittal and coronal reconstru ctions were viewed as well as maximal intensity projections on an independent 3- D workstation. Automated exposure control was utilized for the study. A dose lowering technique was utilized adhering to the principles of ALARA. FINDINGS: The head CT will be reported separately. No acute intracranial hemorrhage was identified on that exam. Ventricular system is unremarkable. Basal cisterns are patent. There is moderate plaque within the bilateral cavernous carotids without stenosis. No central vessel occlusion is identified on this examination. The left vertebral artery is dominant. There is mild to moderate stenoses of the intracranial portions of the bilateral vertebral arteries. The basilar artery is patent. The bilateral posterior cerebral arteries are patent. Major dural sinuses are patent. IMPRESSION: 1. No central vessel occlusion. No intracranial aneurysm. 2. Moderate plaque within the intracranial vessels. Mild to moderate stenosis of the bilateral intracranial vertebral arteries. ACT 112: Negative or not required by law. Electronically signed by: Dre Vargas M.D. 01/15/2023 4:36 PM Neck CTA 01/15/23 14:25 CT ANGIOGRAPHY OF THE NECK WITH CONTRAST CLINICAL HISTORY: neuro deficit, acute stroke suspected COMPARISON STUDY: No previous studies for comparison. Technique: CT angiography of the carotid and vertebral arteries was obtained using Optiray and 3D reconstruction on an independent workstation. NASCET criteria was utilized. Automated exposure control was utilized for the study. A dose lowering technique was utilized adhering to the principles of ALARA. CT DOSE: 1137.41 mGy.cm Findings: Visualized portions of the lung apices are unremarkable. There is no acute cervical spine fracture. There is no cervical lymphadenopathy. A left lobe thyroid nodule is noted. This measures 2.5 cm in the AP dimension. The bilateral common carotid, cervical internal carotid and vertebral arteries are patent. There is mild plaque within these vessels. There is no stenosis. There is no aneurysm within the neck. IMPRESSION: No stenosis or dissection within the bilateral common carotid, cervical internal carotid or vertebral arteries. Mild atherosclerotic plaque. ACT 112: Negative or not required by law. Electronically signed by: Dre Vargas M.D. 01/15/2023 4:[address] 01/15/23 14:27 CT OF THE CERVICAL SPINE WITHOUT CONTRAST CLINICAL HISTORY: Fall. COMPARISON STUDY: Cervical spine radiographs September 04, 2010. TECHNIQUE: Helical axial images of the cervical spine were obtained without IV contrast. Sagittal and coronal reconstructions were viewed. Automated exposure control was utilized for the study. A dose lowering technique was utilized adhering to the principles of ALARA. FINDINGS: There is mild reversal of the cervical lordosis. Vertebral body heights are maintained. No acute cervical spine fracture or subluxation is present. There is no prevertebral edema. Facet joints are intact. Moderate multilevel degenerative changes within the cervical spine are present. IMPRESSION: No acute cervical spine fracture or subluxation. ACT 112: Negative or not required by law. Electronically signed by: Dre Vargas M.D. 01/15/2023 4:20 PM ECG Additional Comments: Normal sinus rhythm Possible Left atrial enlargement Borderline ECG When compared with ECG of 06-DEC-2018 11:23, Vent. rate has increased BY 28 BPM Code Status & VTE Plan Code Status DNR/DNI VTE Prophylaxis Plan VTE Prophylaxis will be ordered: Yes Supervising Physician Co-Signing Physician Notes I personally saw and examined the patient. I verified all camarena points and agree with Aniket Mar PA-C with the following exceptions and/or additions: 77 year old female admission presents to the ER with fever, chills, congestion, body aches, a productive cough with clear sputum, and generalized weakness. Concern for 1 hour of dysarthria this morning. O/E HS RRR, no murmurs, Chest CTAB, Abdo SNT, speech normal, CN 2-> 12 intact, no lateralizing sensation loss or motor extremity weakness A/P Stroke-like symptoms - Brain MRI, suspect most likely due to influenza below. If brain MRI normal would not pursue further. Influenza A - symptoms > 48 hours therefore symptomatic treatment only PG Care Time/CCT Total # of Minutes Spent Total Time Spent with Patient: Total time spent is greater than 50% in coordination of care (as documented) at patient's floor/unit and/or counseling patient: Coding [place] [address] INT INP/OBS CARE 2/55MIN Patient Type Established Medical Decision Making Moderate Complexity Diagnoses Stroke-like symptoms R29.90 Generalized weakness R53.1 Influenza A J10.1 HTN (hypertension) I10 Hyperlipidemia E78.5
[2023-01-15] MEDS ORDERED: PHARMACIST DISCHARGE MED REC CONSULT PRN (17:06)
[2023-01-15] MEDS ORDERED: LOSARTAN POTASSIUM 50 MG TAB PO STA (18:24)
[2023-01-15] MEDS ORDERED: ACETAMINOPHEN 325 MG TAB PO STA (19:08)
[2023-01-15] MEDS ORDERED: ACETAMINOPHEN 325 MG TAB PO PRN (20:21)
[2023-01-15] MEDS: ALBUT/IPRATROP 3MG/0.5MG NEB 3 ML VIAL NEB SCH (20:35)
--- NOTE | 2023-01-15 22:12 | Electrocardiogram Report ---
Test Reason : Blood Pressure : / mmHG Vent. Rate : 084 BPM Atrial Rate : 084 BPM P-R Int : 156 ms QRS Dur : 082 ms QT Int : 360 ms P-R-T Axes : 049 013 055 degrees QTc Int : 425 ms Normal sinus rhythm Possible Left atrial enlargement Nonspecific ST abnormality When compared with ECG of 06-DEC-2018 11:23, Vent. rate has increased BY 28 BPM Confirmed by Sam Salvador ([id number]) on 01/15/2023 10:11:43 PM Referred By: REFERRED SELF Confirmed By:Sam Salvador
[2023-01-15] MEDS: ENOXAPARIN INJ 40 MG/0.4 ML SYR SQ SCH (22:54)
[2023-01-15] MEDS: ATORVASTATIN 20 MG TAB PO SCH (22:54)
[2023-01-15] MEDS ORDERED: LOSARTAN POTASSIUM 50 MG TAB PO SCH (23:00)
[2023-01-15] MEDS ORDERED: Nursing to Pharmacy Communication SCH (23:00)
[2023-01-16] MEDS: dilTIAZem HCL 120 MG CAPCR PO SCH ×2 (00:33→21:06)
[2023-01-16] MEDS: ASPIRIN 81 MG ECTAB PO SCH ×2 (00:33→21:06)
[2023-01-16 07:02] LABS: Basophils # (auto) 0.04 K/uL (0-0.2); Basophils % (auto) 1.1 %; Eosinophils % (auto) 2.7 %; Hematocrit (blood only) 38.5 % (37.0-47.0); Hemoglobin 13.8 g/dl (12.0-16.0); Immature Granulocytes # (auto) 0.01 K/uL (0.01-0.20); Immature Granulocytes % (auto) 0.3 %; Lymphocytes # (auto) 1.38 K/uL (1.2-3.4); Lymphocytes % (auto) 37.9 %; Mean Corpuscular Hemoglobin 32.6 pg (25.0-34.0); Mean Corpuscular Hgb Conc 35.8 g/dL (32.0-36.0); Mean Platelet Volume 9.2 fL (9.4-12.4); Monocytes % (auto) 24.7 %; Neutrophils # (auto) 1.21 K/uL (1.40-6.50); Neutrophils % (auto) 33.3 %; Platelet Count 216 K/uL (130-400); RDW Standard Deviation 43.2 fL (36.4-46.3); Red Blood Count 4.23 M/uL (4.20-5.40); White Blood Count 3.64 K/ul (4.8-10.8)
[2023-01-16] MEDS: ALBUT/IPRATROP 3MG/0.5MG NEB 3 ML VIAL NEB SCH ×4 (07:10→19:30)
[2023-01-16 07:21] LABS: BUN Creatinine Ratio 20.4 (10-20); Calcium 8.4 mg/dl (8.6-10.3); Chol HDL Ratio 3.4 (0-5); Creatinine Clr Calc Pharmacy 44.3 ml/min; Est GFR (African American) 68.2 ml/min; Est GFR (Non-African American) 58.9 ml/min; Magnesium 2.1 mg/dl (1.7-2.4); Potassium 3.3 mmol/L (3.5-5.1)
[2023-01-16 08:54] LABS: Estimated Average Glucose 134 mg/dl; Hemoglobin A1C 6.3 % (4.5-5.6)
[2023-01-16] MEDS ORDERED: dilTIAZem HCL 120 MG CAPCR PO SCH (09:00)
[2023-01-16] MEDS ORDERED: ASPIRIN 81 MG ECTAB PO SCH (09:00)
[2023-01-16] MEDS ORDERED: LOSARTAN POTASSIUM 50 MG TAB PO SCH ×2 (09:00→21:00)
[2023-01-16] MEDS: NSS + 20MEQ KCL 20 MEQ/1,000 ML BAG IV SCH ×2 (09:05→21:01)
--- NOTE | 2023-01-16 11:50 | Hospitalist Progress Note ---
Date of Service January 16, 2023 Assessment & Plan (1) Stroke-like symptoms: Plan: Transient expressive dysphasia has resolved. Brain MRI scan is pending. CT of the head and CTA of the neck were negative for acute findings. At this time it appears that her temporary slurred speech was likely the result of her fall and hitting her head, possibly a mild concussion. (2) Generalized weakness: Plan: Likely due to her acute illness. No focal neuro defects on exam . Fall precautions, PT/OT consults placed (3) Influenza A: Plan: Currently stable on RA . Symptoms started recently but the patient declined tamiflu . Supportive care (4) HTN (hypertension): Plan: Hypertensive on admission but this has now normalized. Continue current medical management (5) Hyperlipidemia: Plan: Stable. Conitnue statin Plan Hopeful discharge to home tomorrow, January 17 Admission and Anticipated Discharge Date Admission Date: January 15, 2023 Subjective Alert and oriented. Brain MRI scan remains pending. No current CVA symptoms. Blood pressure and heart rate have normalized. She remains on room air. Potassium supplementation continues. PT and OT evaluations requested Review of Systems Review of Systems: Constitutional-no fever or chills ENT-no blurred vision, no double vision, no epistaxis, no sore throat Respiratory-no cough, no wheezing, no shortness of breath Cardiac-no palpitations, no chest pain, no syncope GI-no nausea, vomiting, diarrhea, melena, hematochezia -no urinary retention, no urinary incontinence, no dysuria, no hematuria Musculoskeletal-no joint pain, no muscle tenderness Skin-no bruising, no rashes, no pruritus Neuro-no isolated weakness, no paresthesia, no weakness Psych-no depression, no anxiety Physical Exam Physical Exam: General-alert and oriented x3, no fevers, no chills HEENT-head atraumatic and normocephalic, pupils equal and reactive to light, extraocular muscles intact Neck-no lymphadenopathy or thyromegaly, trachea midline Chest-clear to auscultation percussion. No rales wheezing or rhonchi Cardiac-regular rate and rhythm, normal S1 and S2 Abdomen-normal bowel sounds, nontender, no hepatosplenomegaly Extremities-no cyanosis, clubbing, or edema Neuro-cranial nerves II through XII intact, motor and sensory function within normal limits, strength symmetrical , no focal deficits Psych-normal affect, normal mood Results & Data Results & Data Vital Signs (Past 12 Hours) Vital Signs Temp Pulse Pulse Resp BP Pulse Ox O2 Del Method 01/16/23 11:32 74 20 96 Room Air 01/16/23 07:33 37.1 C 80 20 122/63 93 Room Air 01/16/23 07:41 71 20 95 Nasal Cannula 01/16/23 07:12 74 01/16/23 02:46 36.8 C 63 16 112/62 93 Room Air O2 Flow Rate 01/16/23 11:32 01/16/23 07:33 01/16/23 07:41 1 01/16/23 07:12 01/16/23 02:46 Laboratory Results 01/16/23 06:38 01/16/23 06:38 PG Care Time/CCT Total # of Minutes Spent Total Time Spent with Patient: Total time spent is greater than 50% in coordination of care (as documented) at patient's floor/unit and/or counseling patient: Coding Level of Care Code 28695 SUB INP/OBS CARE 3/50MIN Diagnoses Stroke-like symptoms R29.90 Generalized weakness R53.1 Influenza A J10.1 HTN (hypertension) I10 Hyperlipidemia E78.5
--- NOTE | 2023-01-16 15:17 | XCELERA ---
[id number]\[id number]
[2023-01-16] MEDS: ATORVASTATIN 20 MG TAB PO SCH (21:06)
[2023-01-16] MEDS: ENOXAPARIN INJ 40 MG/0.4 ML SYR SQ SCH (21:06)
--- NOTE | 2023-01-17 00:57 | Magnetic Resonance Report ---
Exam(s): MRI HEAD Without Contrast History: Reason for exam: dysarthria. Exam: MR HEAD Without Contrast Comparison: CT head 01/15/2023 Findings: No abnormal signal intensity seen on the diffusion or the gradient echo sequences. Harden-white matter differentiation is seen to be normal. Ventricles, extra-axial CSF spaces are seen to be unremarkable. Scattered chronic white matter changes of small vessel ischemic disease. Status post bilateral lens replacement. Globes, orbits, parasellar region, bilateral cerebellopontine angles are visualized and normal. Mucosal thickening in bilateral maxillary sinus, sphenoid sinus and scattered in the ethmoid air cells. Vascular flow voids are patent. Impression: 1. No acute intracranial hemorrhage mass-effect or edema. 2. Mild involutional changes and some scattered chronic white matter changes of small vessel ischemic disease. Electronically signed by: Russell Mandel MD 01/17/23 00:56 AM
[2023-01-17] MEDS: ALBUT/IPRATROP 3MG/0.5MG NEB 3 ML VIAL NEB SCH ×2 (07:13→10:51)
[2023-01-17 08:34] LABS: Basophils # (auto) 0.03 K/uL (0-0.2); Basophils % (auto) 0.7 %; Eosinophils # (auto) 0.19 K/uL (0-0.50); Eosinophils % (auto) 4.5 %; Hematocrit (blood only) 38.1 % (37.0-47.0); Immature Granulocytes # (auto) 0.01 K/uL (0.01-0.20); Immature Granulocytes % (auto) 0.2 %; Lymphocytes # (auto) 2.02 K/uL (1.2-3.4); Lymphocytes % (auto) 47.6 %; Mean Corpuscular Hemoglobin 31.2 pg (25.0-34.0); Mean Corpuscular Hgb Conc 34.1 g/dL (32.0-36.0); Mean Corpuscular Volume 91.4 fL (80.0-100.0); Mean Platelet Volume 9.4 fL (9.4-12.4); Monocytes # (auto) 0.69 K/uL (0.11-0.59); Monocytes % (auto) 16.3 %; Neutrophils % (auto) 30.7 %; Platelet Count 237 K/uL (130-400); RDW Coefficient of Variation 13.2 % (11.5-14.5); RDW Standard Deviation 44.3 fL (36.4-46.3); Red Blood Count 4.17 M/uL (4.20-5.40); White Blood Count 4.24 K/ul (4.8-10.8)
[2023-01-17 09:07] LABS: BUN Creatinine Ratio 17.1 (10-20); Calcium 8.3 mg/dl (8.6-10.3); Creatinine Clr Calc Pharmacy 50.2 ml/min; Est GFR (African American) 79.4 ml/min; Est GFR (Non-African American) 68.5 ml/min; Potassium 3.7 mmol/L (3.5-5.1)
[2023-01-17] MEDS: NSS + 20MEQ KCL 20 MEQ/1,000 ML BAG IV SCH (10:30)
[2023-01-17] MEDS ORDERED: POLYETHYLENE (MIRALAX) 17 GM PACK PO SCH (10:45)
[2023-01-17] MEDS ORDERED: CLOPIDOGREL BISULFATE 75 MG TAB PO ONE (11:45)
[2023-01-17] MEDS ORDERED: STROKE PATIENT DISCHARGE STA (11:53)
--- NOTE | 2023-01-17 11:55 | Discharge Summary ---
Date of Service January 17, 2023 Admission HPI Per Admitting Provider Adelaida is a 77 year old female with a PMH significant for HTN, Hyperlipidemia, vertigo, and peripheral neuropathy who presented to the [facility] ED on 01/15/23 with complaints of flu-like symptoms, fall, and slurred speech. In the ED the patient was found to be afebrile, hypertensive at 194/93, and stable on RA. CBC, CMP, High sen trop were all WNL. The patient was found to be Influenza A positive. Chest xray was clear. CT of the head was negative for acute findings. CTA of the head was read as "1. No central vessel occlusion. No intracranial aneurysm. 2. Moderate plaque within the intracranial vessels. Mild to moderate stenosis of the bilateral intracranial vertebral arteries.". CTA of the neck was read as "No stenosis or dissection within the bilateral common carotid, cervical internal carotid or vertebral arteries. Mild atherosclerotic plaque.". CT of the cervical spine was negative for acute findings. At the time of the exam the patient was lying in bed in no acute distress. Her is in the next bed as they are both being admitted. They are accompanied by their children, sitting bedside. The patient states that she started to develop flu-like symptoms including fever, chills, congestion, body aches, a productive cough with clear sputum, and generalized weakness. She states that she was sitting in her recliner earlier today and attempted to stand. She has chronic left leg pain due to IT band tightness. When standing her left leg gave out and she slid to the floor, landing on her buttocks. She denies hitting her head or losing consciousness at that time and denies any new pain from that fall. She attempted to stand but then fell backwards, hitting her head on the ground, she did not lose consciousness. She called out to her son who was in the house and came to her side. He noticed that she was slurring her words and she agrees. She denies being confused and knew she was slurring her words. The patient's son denies seeing any facial droop or unilateral weakness. The patient denies paresthesia or weakness. Her symptoms resolved prior to EMS arriving approximately 20-30 min after her fall. She current feels back to her baseline and denies head, neck, and back pain. She denies current chest pain, abd pain, nausea, vomiting, diarrhea, dysuria, hematuria, melena, LE swelling and other recent trauma. She is a DNR/DNI and would want her children to make medical decisions for her if she could not make them herself. Please refer to Dr. Moreira's attestation for any changes to the treatment plan Principal Diagnosis TIA, Influenza A, Fall Discharge Exam Constitutional well developed; no acute distress Eyes + anicteric sclerae and EOM intact bilaterally ENMT external ear and nose normal, oropharynx normal Respiratory normal respiratory effort, lungs clear to auscultation Cardiovascular RRR, no murmur, no edema Gastrointestinal (Abdomen) normal bowel sounds, soft, nontender, no hepatosplenomegaly Musculoskeletal no cyanosis or clubbing, extremities motor strength 5/5 Neurologic PERRL, EOMI, accommodation nl, no face palsy, no dysarthria Psychiatric A+Ox3, euthymic affect Discharge Data Allergies Allergy/AdvReac Type Severity Reaction Status Date / Time adhesive Allergy Unknown SKIN Verified 01/15/23 17:28 BLISTERS codeine AdvReac Unknown GI UPSET Verified 01/15/23 17:28 Consultations 01/15/23 16:45 ED Decision to Admit Stat Ordered Studies 01/15/23 14:25 CT angio head w con Stat CT angio neck with con Stat CT head/brain wo con Stat 01/15/23 14:27 CT cervical spine wo con Stat 01/16/23 22:48 MR brain wo con Routine ECHO Hospital Course (1) Brain TIA: Transient expressive dysphasia has resolved. Brain MRI negative for CVA CT of the head and CTA of the neck were negative for acute findings but do show moderate stenosis of vertebral arteries, carotids ok ABCD2 score high at 4 and needs DAPT x 21 days--> started Plavix x 21 days on day of discharge and continue ASA mono theraapy after that Lipids ok but increase statin to high intensity at atorva 40mg daily BPs fairly well controlled-follow with PCP and continue losartan With prediabetes with HgbA1C 6.3%--> advised low carb diet and follow with PCP as before ECHO negative Recommend 30 day event monitor for ongoing arrhythmia monitoring for occult Afib--> to be arranged by Nurse Navigator PT/OT recommending home health given ongoing left IT band issues and recent fall from weakness associated with flu--> doubtful that fall was from TIA as she felt her LLE give way and her speech issues would likely be left sided TIA (2) Generalized weakness: Likely due to her acute illness. No focal neuro defects on exam . Fall precautions, PT/OT consults placed as above Improved (3) Influenza A: Currently stable on RA . Symptoms started recently but the patient declined tamiflu . Supportive care, antitussives prn (4) HTN (hypertension): Hypertensive on admission but this has now normalized. Continue current medical management (5) Hyperlipidemia: as above, increase statin to high intensity (6) Thyroid nodule: 2.5cm cyst seen on CT neck last TSH 1 year ago normal and was not checked this admission defer to PCP to check when not acutely ill and order thyroid US as outpt Plan DVT proph- Lovenox Dispodc to home Total Time Total Time Spent Total Time Spent (In Minutes): 35 min Discharge Plan Discharge Items Patient Disposition: Home - Home Health Services Reason For Visit: flu symptoms, stroke-like symptoms Discharge Diagnosis: TIA, Influenza A, Fall, Prediabetes Condition on Discharge: Good Activity: As commented below Lifting: Gradually increase as tolerated Bathing: No limitations Exercise/Sports: Gradually increase as tolerated Exercise Comment: with home PT/OT Non-emergency contact: Primary Care Provider Call non-emergency contact if: you have any medication questions and your symptoms worsen Follow-up/Referrals: Paula Koo MD [Primary Care Provider] - (Follow up within 1-2 weeks.) Diet: Carb Consistent or DM2 and Heart Healthy Addtl Attending Provider Instructions: You were admitted with a fall and slurred speech thought to be from a TIA (mini stroke). Fortunately, this cleared up on its own. You should continue on aspirin as before, but a second blood thinner called Plavix will be added on for the next three weeks to prevent TIA/stroke. Also, your atorvastatin will be increased to a high intensity dosing to prevent future TIA/stroke. You will be mailed a cardiac event monitor to wear for 30 days to look for abnormal heart rhythms that can cause TIA/stroke. Incidentally, you were found to have a thyroid nodule on the CT scan of your neck. Please have your PCP follow up on this as well. Risk Factors for Stroke: You can reduce your chances of stroke by working with your medical provider to adopt a healthy lifestyle. Some specific ways to lower your chance of stroke are: * If you are a smoker, now is the time to stop smoking cigarettes * If you are diabetic, improve the control of your blood sugars * Avoid excessive amounts of alcohol * Control high blood pressure * Lose weight if you are overweight * Be sure to lead an active lifestyle * Eat a healthy diet low in salt, cholesterol and fat You should know about other risk factors for stroke that you are unable to control. These include: * Age 55 years or older * Male gender * Certain racial groups: , or / * Family History of Stroke, Mini stroke or Heart Attack * Sickle Cell Disease Follow Up: It is important for you to keep your follow up appointments with your medical provider. Who to Call and When: Medical Emergencies: Call 911 immediately if you experience any of the following warning signs and symptoms of Stroke: * Sudden numbness or weakness of the face, arm or leg, especially on one side of the body * Sudden confusion, trouble speaking or understanding * Sudden trouble seeing in one or both eyes * Sudden trouble walking, dizziness, loss of balance or coordination * Sudden severe headache with no cause Do not delay calling 911 if you experience any warning signs or symptoms of a stroke. Delay in seeking medical attention may affect what treatments can be given to you. . Pending Studies at Discharge: No Stand-Alone Forms: My [facility], Smoking Cessation Medications and DC Order Prescriptions: New clopidogrel 75 mg Tablet 75 mg PO QAM Qty: 20 0RF atorvastatin 40 mg tablet 40 mg PO DAILY Qty: 30 0RF Continued cholecalciferol (vitamin D3) 50 mcg (2,000 unit) capsule 4,000 units PO DAILY Patient Comments: with largest meal of the day polyethylene glycol 3350 17 gram/dose powder See Rx Instructions PO QAM Rx Instructions: 1.25 teaspoons PO daily in the morning; diltiazem HCl 120 mg capsule,extended release 24hr 120 mg PO DAILY Qty: 90 1RF losartan 50 mg tablet 50 mg PO DAILY Qty: 90 1RF aspirin [Aspir-Low] 81 mg Tablet,Delayed Release (Dr/Ec) 81 mg PO DAILY Discontinued atorvastatin 20 mg tablet 20 mg PO HS Qty: 90 1RF Krames/Other Patient Handouts: Prediabetes, 5 Steps for Eating Healthier Admission Data Admit Date/Time: 01/15/23 17:05 Attending Provider: Tussey,Asiya B. Admit Provider: Leander Moreira Primary Care Provider: Paula Koo Other Providers: Leander Moreira Coding Level of Care Code 21001 INP/OBS DISCH >30 MIN Diagnoses Brain TIA G45.9 Generalized weakness R53.1 Influenza A J10.1 HTN (hypertension) I10 Hyperlipidemia E78.5 Thyroid nodule E04.1
[2023-01-18] MEDS ORDERED: CLOPIDOGREL BISULFATE 75 MG TAB PO SCH (09:00)
== END 2023-01-17 13:05 | disposition home health service (06) ==
LOC: ED 13:54 → 2N 13:54 → SUATTDRO 17:05 → 2N 19:59

== ENCOUNTER 2024-01-26 03:53 | Observation (INO) ==
--- NOTE | 2024-01-26 03:59 | Emergency Department Note ---
Impression & Plan Dizziness, Ambulatory dysfunction, Nausea & vomiting ED Provider Note HISTORY OF PRESENT ILLNESS: Patient is a 78-year-old female presenting with gait instability, dizziness and vomiting. Patient reports that "all night" she has been having multiple episodes of vomiting and feeling very lightheaded and unstable on her feet. Reports that she gets very dizzy and lightheaded when she stands up and almost falls and has to hold onto things in order to ambulate. She is on Eliquis for history of a DVT. She had a previous TIA. Denies any headache or changes in vision. Is any numbness or tingling or weakness in her extremities. Denies any chest pain or shortness of breath. Denies any abdominal pain. Denies any fevers at home, but reports she has had chills all night. Denies any dysuria or hematuria ROS: as above PHYSICAL EXAM: Constitutional: Patient appears in no acute distress. HENT: Head: Normocephalic and atraumatic. Eyes: EOMI, PERRL Mouth/Throat: Mucous membranes moist. Neck: Trachea midline. Neck supple. Cardiovascular: RRR, No murmurs, rubs or gallops. Intact distal pulses. Pulmonary/Chest: No respiratory distress. Breath sounds clear and equal bilaterally. No wheezes or rales. Abdominal: Abdomen soft, no tenderness, rebound or guarding. Musculoskeletal: No edema, tenderness or deformity noted. Skin: Warm and dry. No rash, erythema, pallor or cyanosis Psychiatric: Appropriate mood and affect for situation. Neurological: Alert and keenly responsive. CN II-XII grossly intact, moving all extremities equally and fully. MDM: - Vitals signs showed hypertension and tachycardia - History obtained via patient. History as above. - Chronic conditions affecting care: DVT; HTN - Differential diagnoses include, but are not limited to: CVA; intracranial hemorrhage; peripheral vertigo; UTI; pneumonia; electrolyte abnormality; ACS - Order placed for continuous cardiac monitoring. At this time, monitor showed rate of 90 bpm with normal rhythm, per my interpretation. - External medical records reviewed. Wellness visit dated 11/30/2023 was reviewed. Patient follows in their clinic for hypertension, hyperlipidemia and elevated fasting blood sugar. - EKG interpreted by myself showed normal sinus rhythm. Rate 88 bpm. QT 352. No acute ischemic changes - Laboratory workup interpreted by myself showed normal WBC; slight hypokalemia (K 3.4); normal troponin; normal magnesium - CXR negative for pneumonia, per my interpretation - CT head wo contrast negative for acute pathology, per radiology. Noted to have stable mild ventriculomegaly per the radiologist. - Viral respiratory panel negative. - Patient given 1L NS and 25 mg PO antivert in ER. On reassessment, patient reports feeling slightly improved. She did ambulate reports that she was not as dizzy and unstable as she was earlier. However, she does still feel unwell. - MRI brain wo contrast ordered. - Discussion was had with piano case maker about patient's case and need for admission - Hospitalist consulted for admission - Patient admitted to [facility] service for further evaluation and management. ASSESSMENT AND PLAN: Diagnosis: dizziness; nausea and vomiting; ambulatory dysfunction Plan: admit Past Med/Surg History Medical History Deep vein thrombosis (DVT) Thyroid nodule Brain TIA HTN (hypertension) Sacroiliitis Low Back Pain Asthma Peripheral neuropathy Postmenopausal disorder Screening for osteoporosis Urge and stress incontinence Surgical History Hx of eye surgery Cyst Removal on Eye Hx of cataract surgery Hx of breast surgery Benign lump removed Hx of hysterectomy Family History Mother Myocardial infarction Denies family history of Ovarian cancer Prostate cancer Breast cancer Colorectal cancer Social History Smoking Status: Never smoker Tobacco Type: Cigarettes Second Hand Exposure: No; Do You Dip or Chew Tobacco: No; Hx Alcohol Use: Yes Alcohol type: wine Alcohol Intake Frequency: Monthly or Less Hx Substance Use: No Preferred Language: Divehi Communication Ability: Effective Visual Impairment: No Limitations Hearing Ability: Normal [facility] Manager Required: No Beliefs That Will Affect Care: None marital status: Current Living Situation: Spouse and Family current occupational status: retired How many Children do You have: 3 Feels Safe at Home: Yes Childhood Exposure to Second-Hand Smoke: Yes Diet: regular caffeine: Yes during the past year weight has: remained stable Dental Care, Regularly: Yes Physical Activity Frequency: Daily Seatbelt Use: always Sunscreen Use: No Do you think of yourself as: straight/heterosexual Gender Identity: Female Assistive Devices: Glasses Allergies Allergies Allergy/AdvReac Type Severity Reaction Status Date / Time adhesive Allergy Unknown SKIN Verified 01/11/24 08:05 BLISTERS codeine AdvReac Unknown GI UPSET Verified 01/11/24 08:05 Home Meds Home Medications Medication Instructions Recorded Confirmed cholecalciferol (vitamin D3) 50 4,000 units PO DAILY 08/24/19 01/11/24 mcg (2,000 unit) capsule polyethylene glycol 3350 17 See Rx Instructions PO QAM 08/24/19 01/11/24 gram/dose oral powder aspirin 81 mg tablet,delayed 81 mg PO DAILY 01/15/23 01/11/24 release Previous Rx's Medication Instructions Recorded apixaban 5 mg tablet (Eliquis) 5 mg PO BID #180 tabs 11/14/23 atorvastatin 40 mg tablet 40 mg PO DAILY #90 tabs 11/14/23 diltiazem HCl 120 mg 120 mg PO DAILY #90 caps 11/14/23 capsule,extended release 24 hr losartan 50 mg tablet 50 mg PO DAILY #90 tabs 11/14/23 Results & Data (ED) Vital Signs Vital Signs - 24 hr 01/26/24 03:56 01/26/24 04:07 01/26/24 04:07 Temperature 37.1 C Temperature Source Temporal Artery Scan Pulse Rate 95 H 90 90 Respiratory Rate 20 Respiratory Effort / Characteristics Non-Labored Spontaneous Respiratory Depth Normal Blood Pressure 164/81 H Blood Pressure Mean 108 Pulse Oximetry 96 Oxygen Delivery Method Room Air Sepsis Recent Fever Within 48 Hours No Sepsis New/Unexplained Change in Mental Status N/A Sepsis Action Taken by Nursing No Action Required 01/26/24 04:18 Temperature Temperature Source Pulse Rate Respiratory Rate Respiratory Effort / Characteristics Respiratory Depth Blood Pressure Blood Pressure Mean Pulse Oximetry Oxygen Delivery Method Room Air Sepsis Recent Fever Within 48 Hours Sepsis New/Unexplained Change in Mental Status Sepsis Action Taken by Nursing Laboratory Data 01/26/24 04:47 01/26/24 04:47 Lab Results 01/26/24 Range/Units 04:47 WBC 7.47 (4.8-10.8) K/ul RBC 4.01 L (4.20-5.40) M/uL Hgb 12.6 (12.0-16.0) g/dl Hct 36.9 L (37.0-47.0) % MCV 92.0 (80.0-100.0) fL MCH 31.4 (25.0-34.0) pg MCHC 34.1 (32.0-36.0) g/dL RDW Std Deviation 43.6 (36.4-46.3) fL RDW Coeff of Rigoberto 12.7 (11.5-14.5) % Plt Count 277 (130-400) K/uL MPV 9.1 L (9.4-12.4) fL Immature Gran % (Auto) 0.4 % Neut % (Auto) 94.1 % Lymph % (Auto) 3.9 % Harmon % (Auto) 1.2 % Eos % (Auto) 0.1 % Baso % (Auto) 0.3 % Neut # (Auto) 7.03 H (1.40-6.50) K/uL Lymph # (Auto) 0.29 L (1.20-3.40) K/uL Harmon # (Auto) 0.09 L (0.11-0.59) K/uL Eos # (Auto) 0.01 (0.00-0.50) K/uL Baso # (Auto) 0.02 (0.00-0.20) K/uL Immature Gran # (Auto) 0.03 (0.01-0.20) K/uL Toxic Vacuolation 2+ PT 10.9 (9.0-12.0) Seconds INR 1.0 (0.9-1.1) Sodium 139 (136-145) mmol/L Potassium 3.4 L (3.5-5.1) mmol/L Chloride 108 H (98-107) mmol/L Carbon Dioxide 25 (21-32) mmol/L Anion Gap 6 (3-11) BUN 28 H (6-23) mg/dl Creatinine 1.03 (0.6-1.2) mg/dl Est Cr Clr Drug Dosing Not Reportable Est GFR ( Amer) 59.9 ml/min Est GFR (Non-Af Amer) 51.7 ml/min BUN/Creatinine Ratio 27.2 H (10-20) Glucose 113 H (70-99(Fasting)) mg/dl Calcium 8.6 (8.6-10.3) mg/dl Magnesium 1.8 (1.7-2.4) mg/dl Total Bilirubin 0.5 (0.2-1.0) mg/dl AST 22 (13-39) U/L ALT 23 (7-52) U/L Alkaline Phosphatase 84 (34-104) U/L Troponin I High Sens 9.0 (0-14) pg/ml Total Protein 5.5 L (6.0-8.3) gm/dl Albumin 3.7 (3.4-5.0) gm/dl Globulin 1.8 L (2.5-4.0) gm/dl Albumin/Globulin Ratio 2.1 H (0.9-2) Adenovirus (PCR) Not Detected (NotDetected) B. pertussis DNA (PCR) Not Detected (NotDetected) B.parapertussis DNA PCR Not Detected (NotDetected) C. pneumoniae DNA (PCR) Not Detected (NotDetected) Coronavirus OC43 (PCR) Not Detected (NotDetected) Coronavirus HKU1 (PCR) Not Detected (NotDetected) Coronavirus 229E (PCR) Not Detected (NotDetected) SARS-CoV-2 (PCR) Not Detected (NotDetected) Coronavirus NL63 (PCR) Not Detected (NotDetected) Human Metapneumovir PCR Not Detected (NotDetected) Influenza Type A (PCR) Not Detected (NotDetected) Influenza Type B (PCR) Not Detected (NotDetected) M. pneumoniae (PCR) Not Detected (NotDetected) Parainfluenza 1 (PCR) Not Detected (NotDetected) Parainfluenza 2 (PCR) Not Detected (NotDetected) Parainfluenza 3 (PCR) Not Detected (NotDetected) Parainfluenza 4 (PCR) Not Detected (NotDetected) RSV (PCR) Not Detected (NotDetected) Entero/Rhino (PCR) Not Detected (NotDetected) Administered Medications Discontinued Medications Sodium Chloride (Nss) 1,000 mls @ 999 mls/hr IV .Q1H1M SADAF Stop: 01/26/24 05:00 Last Admin: 01/26/24 04:18 Dose: 999 mls/hr Documented By: KG Meclizine HCl (Meclizine Hcl 25 Mg Tab) 25 mg PO NOW STA Stop: 01/26/24 04:56 Last Admin: 01/26/24 05:13 Dose: 25 mg Documented By: CRISTO Imaging Data Radiologist's Impression: Head CT 01/26/24 04:00 Exam(s): CT HEAD Without Contrast EXAM: CT Head Without Intravenous Contrast CLINICAL HISTORY: Reason for exam: dizziness; weakness. TECHNIQUE: Axial computed tomography images of the head/brain without intravenous contrast. CTDI is 37.42 mGy and DLP is 624.41 mGy-cm. Automated exposure control was utilized for the study. A dose lowering technique was utilized adhering to the principles of ALARA. COMPARISON: CT Head dated 01/15/2023 FINDINGS: Brain: Volume loss with prominent ventricles and sulci. Periventricular and subcortical white matter hypoattenuation likely reflects chronic small vessel disease. No hemorrhage. Ventricles: Stable mild ventriculomegaly. Bones/joints: Unremarkable. No acute fracture. Soft tissues: Unremarkable. Sinuses: Unremarkable as visualized. No acute sinusitis. Mastoid air cells: Unremarkable as visualized. No mastoid effusion. IMPRESSION: 1. No evidence of acute intracranial abnormality. 2. Stable mild ventriculomegaly. Likely due to central atrophy. Differential diagnosis includes normal pressure hydrocephalus. Electronically signed by: Brien Swanson M.D. 01/26/24 05:00 AM Discharge Plan Visit Data Chief Complaint: Vomiting Stated Complaint: VOMITING ED Provider: [place] Discharge Problem: Dizziness, Ambulatory dysfunction, Nausea & vomiting Forms Stand Alone Forms: My [facility] [employer] Prescriptions Prescriptions: No Action Eliquis 5 mg tablet 5 mg PO BID Qty: 180 3RF atorvastatin 40 mg tablet 40 mg PO DAILY Qty: 90 3RF diltiazem HCl 120 mg capsule,extended release 24hr 120 mg PO DAILY Qty: 90 3RF losartan 50 mg tablet 50 mg PO DAILY Qty: 90 3RF cholecalciferol (vitamin D3) 50 mcg (2,000 unit) capsule 4,000 units PO DAILY Patient Comments: with largest meal of the day polyethylene glycol 3350 17 gram/dose powder See Rx Instructions PO QAM Rx Instructions: 1.25 teaspoons PO daily in the morning; aspirin 81 mg Tablet,Delayed Release (Dr/Ec) 81 mg PO DAILY Referrals Referrals: Paula Koo MD [Primary Care Provider] -
[2024-01-26] MEDS: SODIUM CHLORIDE 0.9% 1,000 ML IV SCH (04:18)
--- NOTE | 2024-01-26 05:01 | CT Scan Report ---
Exam(s): CT HEAD Without Contrast EXAM: CT Head Without Intravenous Contrast CLINICAL HISTORY: Reason for exam: dizziness; weakness. TECHNIQUE: Axial computed tomography images of the head/brain without intravenous contrast. CTDI is 37.42 mGy and DLP is 624.41 mGy-cm. Automated exposure control was utilized for the study. A dose lowering technique was utilized adhering to the principles of ALARA. COMPARISON: CT Head dated 01/15/2023 FINDINGS: Brain: Volume loss with prominent ventricles and sulci. Periventricular and subcortical white matter hypoattenuation likely reflects chronic small vessel disease. No hemorrhage. Ventricles: Stable mild ventriculomegaly. Bones/joints: Unremarkable. No acute fracture. Soft tissues: Unremarkable. Sinuses: Unremarkable as visualized. No acute sinusitis. Mastoid air cells: Unremarkable as visualized. No mastoid effusion. IMPRESSION: 1. No evidence of acute intracranial abnormality. 2. Stable mild ventriculomegaly. Likely due to central atrophy. Differential diagnosis includes normal pressure hydrocephalus. Electronically signed by: Brien Swanson M.D. 01/26/24 05:00 AM
[2024-01-26] MEDS: MECLIZINE HCL 25 MG TAB PO STA (05:13)
[2024-01-26 05:21] LABS: Hematocrit (blood only) 36.9 % (37.0-47.0); Hemoglobin 12.6 g/dl (12.0-16.0); Mean Corpuscular Hemoglobin 31.4 pg (25.0-34.0); Mean Corpuscular Hgb Conc 34.1 g/dL (32.0-36.0); Mean Platelet Volume 9.1 fL (9.4-12.4); Platelet Count 277 K/uL (130-400); RDW Coefficient of Variation 12.7 % (11.5-14.5); RDW Standard Deviation 43.6 fL (36.4-46.3); Red Blood Count 4.01 M/uL (4.20-5.40); White Blood Count 7.47 K/ul (4.8-10.8)
[2024-01-26 05:23] LABS: Alanine Aminotransferase 23 U/L (7-52); Albumin Globulin Ratio 2.1 (0.9-2); Albumin Level 3.7 gm/dl (3.4-5.0); Alkaline Phosphatase 84 U/L (34-104); Anion Gap 6 (3-11); Aspartate Aminotransferase 22 U/L (13-39); BUN Creatinine Ratio 27.2 (10-20); Bilirubin,Total 0.5 mg/dl (0.2-1.0); Blood Urea Nitrogen 28 mg/dl (6-23); Calcium 8.6 mg/dl (8.6-10.3); Carbon Dioxide 25 mmol/L (21-32); Chloride 108 mmol/L (98-107); Est GFR (African American) 59.9 ml/min; Est GFR (Non-African American) 51.7 ml/min; Globulin 1.8 gm/dl (2.5-4.0); Glucose 113 mg/dl (70-99(Fasting)); Magnesium 1.8 mg/dl (1.7-2.4); Potassium 3.4 mmol/L (3.5-5.1); Sodium 139 mmol/L (136-145); Total Protein 5.5 gm/dl (6.0-8.3)
[2024-01-26 05:50] LABS: Adenovirus PCR Not Detected (NotDetected); Bordetella parapertussis PCR Not Detected (NotDetected); Bordetella pertussis PCR Not Detected (NotDetected); Chlamydia pneumoniae PCR Not Detected (NotDetected); Coronavirus 229E PCR Not Detected (NotDetected); Coronavirus CoV-2 (COVID19)PCR Not Detected (NotDetected); Coronavirus HKU1 PCR Not Detected (NotDetected); Coronavirus NL63 PCR Not Detected (NotDetected); Coronavirus OC43PCR Not Detected (NotDetected); Human Metapneumovirus PCR Not Detected (NotDetected); Influenza A PCR Not Detected (NotDetected); Influenza B PCR Not Detected (NotDetected); Mycoplasma pneumoniae PCR Not Detected (NotDetected); Parainfluenza Virus 1 PCR Not Detected (NotDetected); Parainfluenza Virus 2 PCR Not Detected (NotDetected); Parainfluenza Virus 3 PCR Not Detected (NotDetected); Parainfluenza Virus 4 PCR Not Detected (NotDetected); Respiratory Syncytial VirusPCR Not Detected (NotDetected); Rhinovirus/Enterovirus PCR Not Detected (NotDetected)
[2024-01-26 05:54] LABS: Basophils # (auto) 0.02 K/uL (0.00-0.20); Basophils % (auto) 0.3 %; Eosinophils # (auto) 0.01 K/uL (0.00-0.50); Eosinophils % (auto) 0.1 %; Immature Granulocytes # (auto) 0.03 K/uL (0.01-0.20); Immature Granulocytes % (auto) 0.4 %; Lymphocytes # (auto) 0.29 K/uL (1.20-3.40); Lymphocytes % (auto) 3.9 %; Monocytes # (auto) 0.09 K/uL (0.11-0.59); Monocytes % (auto) 1.2 %; Neutrophils # (auto) 7.03 K/uL (1.40-6.50); Neutrophils % (auto) 94.1 %; Toxic Vacuolation 2+
[2024-01-26 05:58] LABS: Prothrombin Time 10.9 Seconds (9.0-12.0)
[2024-01-26 06:25] LABS: Appearance Urine Clear (Clear); Bacteria Urine Automated 4+ (None Seen); Bilirubin Urine Negative (Negative); Blood Urine 3+ (Negative); Cast Urine Automated 0-2 /lpf (0-2); Color Urine Yellow; Epithelial Cell Urine Auto 0-2 /hpf (0-2); Glucose Urine UA Negative (Negative); Ketones Urine Trace (Negative); Leukocyte Esterase Urine Trace (Negative); Nitrite Urine Negative (Negative); Protein Urine Negative (Negative); RBC Urine Automated >20 /hpf (0-2); Specific Gravity Urine 1.009 (1.000-1.030); Urobilinogen Urine Negative (Negative); WBC Urine Automated 0-5 /hpf (0-5)
--- NOTE | 2024-01-26 06:51 | XRay Report ---
XR chest 1V portable CLINICAL HISTORY: dizziness; weakness COMPARISON STUDY: Chest radiograph January 15, 2023. FINDINGS: Lung volumes are normal. There is no consolidation. Mild right basilar opacities are presen t. There is no pneumothorax or pleural effusion. Cardiac size is normal. Mediastinal contours are nor mal. There is no evidence for pulmonary edema. IMPRESSION: No acute cardiopulmonary findings. Mild bibasilar opacities which favor atelectasis. ACT 112: Negative or not required by law. Electronically signed by: Dre Vargas M.D. 01/26/2024 6:50 AM
--- NOTE | 2024-01-26 07:01 | History & Physical Report ---
Date of Service January 26, 2024 Assessment & Plan (1) Ambulatory dysfunction: (2) Nausea & vomiting: (3) Urinary tract infection: (4) Dizziness: (5) Deep vein thrombosis (DVT): (6) HTN (hypertension): (7) Brain TIA: (8) Hyperlipidemia: (9) Benign hypertension: (10) Lumbar stenosis with neurogenic claudication: Plan Ambulatory dysfunction/generalized weakness/progressive fatigue- Primary differential at this point includes neurologic process versus urinary tract infection CT scan of head shows stable ventriculomegaly compared to 01/15/2023, and questions the possibility of NPH Order MRI brain without contrast Order MRI cervical spine without contrast Potential considerations here are NPH versus Chiari malformation versus demyelinating process versus TIA During admission from 01/15 through 01/16/2023, patient did have negative CT scan head, and CTA head neck, and MRI brain, and was given diagnosis of brain TIA at that time The symptoms were also brought on by significantly greater exertional physical activity, doing her spring cleaning, Urinary tract infection- Follow urine culture and sensitivity Empiric ceftriaxone 2 g IV daily Patient may be experiencing an early form of sepsis, or main symptomatology may be secondary to physiologic stress of UTI Right lower extremity DVT- On chronic apixaban 5 mg p.o. twice daily and will continue Hypertension/hypokalemia- Continue aspirin, diltiazem Hold losartan, allowing some mild permissive hypertension NSS + KCl 20 mill equivalents at 100 mL/h x 1 L Magnesium 1.8, give magnesium sulfate 1 g IV History of Present Illness Chief Complaint: The patient presents to the emergency department with progressively worsening generalized weakness, dizziness when walking, and fatigue that developed 24 hours ago, that is just beginning to improve while in the ED Primary Care Provider: Paula Koo MD The patient is a 78-year-old female with a past medical history including lumbar stenosis with neurogenic claudication with upcoming surgery, right lower extremity DVT, sacroiliitis, hypertension, brain TIA, thyroid nodule, hyperlipidemia, vertigo, IT band syndrome, peripheral neuropathy, short-term memory loss and asthma. The patient reports that she was doing spring cleaning yesterday, moving around a lot of furniture and objects in the house, and shortly thereafter began having the symptoms of severe fatigue, generalized weakness, dizziness with walking and lethargy. She had similar symptoms that prompted an evaluation January 15 and of last year, with negative neurologic workup at that time, and was given a diagnosis of brain TIA. She has not had any symptoms since this occasion. She does report occasional urinary incontinence. She has some mild hearing loss, that does not require hearing aids. She denies ringing in her ears Allergies Allergy/AdvReac Type Severity Reaction Status Date / Time adhesive Allergy Unknown SKIN Verified 01/11/24 08:05 BLISTERS codeine AdvReac Unknown GI UPSET Verified 01/11/24 08:05 Home Medications Medication Instructions Recorded Confirmed Type cholecalciferol (vitamin D3) 50 4,000 units PO DAILY 08/24/19 01/11/24 History mcg (2,000 unit) capsule polyethylene glycol 3350 17 See Rx Instructions PO QAM 08/24/19 01/11/24 History gram/dose oral powder aspirin 81 mg tablet,delayed 81 mg PO DAILY 01/15/23 01/11/24 History release apixaban 5 mg tablet (Eliquis) 5 mg PO BID #180 tabs 11/14/23 01/11/24 Rx atorvastatin 40 mg tablet 40 mg PO DAILY #90 tabs 11/14/23 01/11/24 Rx diltiazem HCl 120 mg 120 mg PO DAILY #90 caps 11/14/23 01/11/24 Rx capsule,extended release 24 hr losartan 50 mg tablet 50 mg PO DAILY #90 tabs 11/14/23 01/11/24 Rx Past Med/Surg History Medical History Deep vein thrombosis (DVT) Thyroid nodule Brain TIA HTN (hypertension) Sacroiliitis Low Back Pain Asthma Peripheral neuropathy Postmenopausal disorder Screening for osteoporosis Urge and stress incontinence Surgical History Hx of eye surgery Cyst Removal on Eye Hx of cataract surgery Hx of breast surgery Benign lump removed Hx of hysterectomy Family History Mother Myocardial infarction Denies family history of Ovarian cancer Prostate cancer Breast cancer Colorectal cancer Social History Smoking Status: Never smoker Tobacco Type: Cigarettes Second Hand Exposure: No; Do You Dip or Chew Tobacco: No; Hx Alcohol Use: Yes Alcohol type: wine Alcohol Intake Frequency: Monthly or Less Hx Substance Use: No Preferred Language: Lithuanian Communication Ability: Effective Visual Impairment: No Limitations Hearing Ability: Normal Offal Icer Poultry Required: No Beliefs That Will Affect Care: None marital status: Current Living Situation: Spouse and Family current occupational status: retired How many Children do You have: 3 Feels Safe at Home: Yes Childhood Exposure to Second-Hand Smoke: Yes Diet: regular caffeine: Yes during the past year weight has: remained stable Dental Care, Regularly: Yes Physical Activity Frequency: Daily Seatbelt Use: always Sunscreen Use: No Do you think of yourself as: straight/heterosexual Gender Identity: Female Assistive Devices: Glasses Review of Systems Review of Systems: The patient denies chest pain, palpitations, shortness of breath, dyspnea on exertion, cough, lower extremity swelling, sore throat, fevers, chills, sweats, nausea, vomiting, diarrhea , constipation, abdominal pain, pelvic pain, blood in urine or stool, dysuria, urinary frequency or urgency, headache, loss of consciousness, rash, Focal weakness, numbness or tingling in arms or legs, generalized arthralgias or myalgias, neck pain, or night sweats. The review of systems is otherwise negative other than for that already noted above, and at least 10 systems have been reviewed. Physical Exam Physical Exam: The patient is awake, alert and oriented 3, well developed and well nourished, normocephalic and atraumatic, lying in bed and in no acute distress. HEENT--PERRL, EOMI, mucous membranes and oropharynx normal Neck--supple. No JVD. No bruits. Thyroid normal, trachea midline, no adenopathy. Heart--normal S1 and S2. No murmurs, rubs or gallops. Lungs--clear bilaterally, no respiratory distress, no accessory muscle use. Abdomen--normal bowel sounds and soft. Nontender. Nondistended, no hernias or masses, no organomegaly. Extremities--no cyanosis or clubbing. No edema. Dermatologic--scattered ecchymoses Neurologic--cranial nerves II through XII grossly intact. Rheumatologic--range of motion mildly reduced due to low back pain Psychiatric--normal affect. Results & Data Results & Data Vital Signs (Past 12 Hours) Vital Signs Temp Pulse Resp BP Pulse Ox O2 Del Method 04/18/24 04:18 Room Air 01/26/24 04:07 90 01/26/24 04:07 90 01/26/24 03:56 37.1 C 95 H 20 164/81 H 96 Room Air Laboratory Results Laboratory Results WBC 7.47 K/ul (4.8-10.8) 01/26/24 04:47 RBC 4.01 M/uL (4.20-5.40) L 01/26/24 04:47 Hgb 12.6 g/dl (12.0-16.0) 01/26/24 04:47 Hct 36.9 % (37.0-47.0) L 01/26/24 04:47 MCV 92.0 fL (80.0-100.0) 01/26/24 04:47 MCH 31.4 pg (25.0-34.0) 01/26/24 04:47 MCHC 34.1 g/dL (32.0-36.0) 01/26/24 04:47 RDW Std Deviation 43.6 fL (36.4-46.3) 01/26/24 04:47 RDW Coeff of Rigoberto 12.7 % (11.5-14.5) 01/26/24 04:47 Plt Count 277 K/uL (130-400) 01/26/24 04:47 MPV 9.1 fL (9.4-12.4) L 01/26/24 04:47 Immature Gran % (Auto) 0.4 % 01/26/24 04:47 Neut % (Auto) 94.1 % 01/26/24 04:47 Lymph % (Auto) 3.9 % 01/26/24 04:47 [place] % (Auto) 1.2 % 01/26/24 04:47 Eos % (Auto) 0.1 % 01/26/24 04:47 Baso % (Auto) 0.3 % 01/26/24 04:47 Neut # (Auto) 7.03 K/uL (1.40-6.50) H 01/26/24 04:47 Lymph # (Auto) 0.29 K/uL (1.20-3.40) L 01/26/24 04:47 Brewster # (Auto) 0.09 K/uL (0.11-0.59) L 01/26/24 04:47 Eos # (Auto) 0.01 K/uL (0.00-0.50) 01/26/24 04:47 Baso # (Auto) 0.02 K/uL (0.00-0.20) 01/26/24 04:47 Immature Gran # (Auto) 0.03 K/uL (0.01-0.20) 01/26/24 04:47 Toxic Vacuolation 2+ 01/26/24 04:47 PT 10.9 Seconds (9.0-12.0) 01/26/24 04:47 INR 1.0 (0.9-1.1) 01/26/24 04:47 Sodium 139 mmol/L (136-145) 01/26/24 04:47 Potassium 3.4 mmol/L (3.5-5.1) L 01/26/24 04:47 Chloride 108 mmol/L (98-107) H 01/26/24 04:47 Carbon Dioxide 25 mmol/L (21-32) 01/26/24 04:47 Anion Gap 6 (3-11) 01/26/24 04:47 BUN 28 mg/dl (6-23) H 01/26/24 04:47 Creatinine 1.03 mg/dl (0.6-1.2) 01/26/24 04:47 Est Cr Clr Drug Dosing Not Reportable 01/26/24 04:47 Est GFR ( Amer) 59.9 ml/min 01/26/24 04:47 Est GFR (Non-Af Amer) 51.7 ml/min 01/26/24 04:47 BUN/Creatinine Ratio 27.2 (10-20) H 01/26/24 04:47 Glucose 113 mg/dl (70-99(Fasting)) H 01/26/24 04:47 Calcium 8.6 mg/dl (8.6-10.3) 01/26/24 04:47 Magnesium 1.8 mg/dl (1.7-2.4) 01/26/24 04:47 Total Bilirubin 0.5 mg/dl (0.2-1.0) 01/26/24 04:47 AST 22 U/L (13-39) 01/26/24 04:47 ALT 23 U/L (7-52) 01/26/24 04:47 Alkaline Phosphatase 84 U/L (34-104) 01/26/24 04:47 Troponin I High Sens 9.0 pg/ml (0-14) 01/26/24 04:47 Total Protein 5.5 gm/dl (6.0-8.3) L 01/26/24 04:47 Albumin 3.7 gm/dl (3.4-5.0) 01/26/24 04:47 Globulin 1.8 gm/dl (2.5-4.0) L 01/26/24 04:47 Albumin/Globulin Ratio 2.1 (0.9-2) H 01/26/24 04:47 Urine Color Yellow 01/26/24 05:40 Urine Appearance Clear (Clear) 01/26/24 05:40 Urine pH 7.0 (4.5-7.5) 01/26/24 05:40 Ur Specific [place] 1.009 (1.000-1.030) 01/26/24 05:40 Urine Protein Negative (Negative) 01/26/24 05:40 Urine Glucose (UA) Negative (Negative) 01/26/24 05:40 Urine Ketones Trace (Negative) H 01/26/24 05:40 Urine Blood 3+ (Negative) H 01/26/24 05:40 Urine Nitrite Negative (Negative) 01/26/24 05:40 Urine Bilirubin Negative (Negative) 01/26/24 05:40 Urine Urobilinogen Negative (Negative) 01/26/24 05:40 Ur Leukocyte Esterase Trace (Negative) H 01/26/24 05:40 Urine WBC (Auto) 0-5 /hpf (0-5) 01/26/24 05:40 Urine RBC (Auto) >20 /hpf (0-2) H 01/26/24 05:40 U Hyaline Cast (Auto) 0-2 /lpf (0-2) 01/26/24 05:40 U Epithel Cells (Auto) 0-2 /hpf (0-2) 01/26/24 05:40 Urine Bacteria (Auto) 4+ (None Seen) H 01/26/24 05:40 Adenovirus (PCR) Not Detected (NotDetected) 01/26/24 04:47 B. pertussis DNA (PCR) Not Detected (NotDetected) 01/26/24 04:47 B.parapertussis DNA PCR Not Detected (NotDetected) 01/26/24 04:47 C. pneumoniae DNA (PCR) Not Detected (NotDetected) 01/26/24 04:47 Coronavirus OC43 (PCR) Not Detected (NotDetected) 01/26/24 04:47 Coronavirus HKU1 (PCR) Not Detected (NotDetected) 01/26/24 04:47 Coronavirus 229E (PCR) Not Detected (NotDetected) 01/26/24 04:47 SARS-CoV-2 (PCR) Not Detected (NotDetected) 01/26/24 04:47 Coronavirus NL63 (PCR) Not Detected (NotDetected) 01/26/24 04:47 Human Metapneumovir PCR Not Detected (NotDetected) 01/26/24 04:47 Influenza Type A (PCR) Not Detected (NotDetected) 01/26/24 04:47 Influenza Type B (PCR) Not Detected (NotDetected) 01/26/24 04:47 M. pneumoniae (PCR) Not Detected (NotDetected) 01/26/24 04:47 Parainfluenza 1 (PCR) Not Detected (NotDetected) 01/26/24 04:47 Parainfluenza 2 (PCR) Not Detected (NotDetected) 01/26/24 04:47 Parainfluenza 3 (PCR) Not Detected (NotDetected) 01/26/24 04:47 Parainfluenza 4 (PCR) Not Detected (NotDetected) 01/26/24 04:47 RSV (PCR) Not Detected (NotDetected) 01/26/24 04:47 Entero/Rhino (PCR) Not Detected (NotDetected) 01/26/24 04:47 Impressions Chest X-Ray 01/26/24 04:00 XR chest 1V portable CLINICAL HISTORY: dizziness; weakness COMPARISON STUDY: Chest radiograph January 15, 2023. FINDINGS: Lung volumes are normal. There is no consolidation. Mild right basilar opacities are present. There is no pneumothorax or pleural effusion. Cardiac size is normal. Mediastinal contours are normal. There is no evidence for pulmonary edema. IMPRESSION: No acute cardiopulmonary findings. Mild bibasilar opacities which favor atelectasis. ACT 112: Negative or not required by law. Electronically signed by: Dre Vargas M.D. 01/26/2024 6:[address] 01/26/24 04:00 Exam(s): CT HEAD Without Contrast EXAM: CT Head Without Intravenous Contrast CLINICAL HISTORY: Reason for exam: dizziness; weakness. TECHNIQUE: Axial computed tomography images of the head/brain without intravenous contrast. CTDI is 37.42 mGy and DLP is 624.41 mGy-cm. Automated exposure control was utilized for the study. A dose lowering technique was utilized adhering to the principles of ALARA. COMPARISON: CT Head dated 01/15/2023 FINDINGS: Brain: Volume loss with prominent ventricles and sulci. Periventricular and subcortical white matter hypoattenuation likely reflects chronic small vessel disease. No hemorrhage. Ventricles: Stable mild ventriculomegaly. Bones/joints: Unremarkable. No acute fracture. Soft tissues: Unremarkable. Sinuses: Unremarkable as visualized. No acute sinusitis. Mastoid air cells: Unremarkable as visualized. No mastoid effusion. IMPRESSION: 1. No evidence of acute intracranial abnormality. 2. Stable mild ventriculomegaly. Likely due to central atrophy. Differential diagnosis includes normal pressure hydrocephalus. Electronically signed by: Brien Swanson M.D. 01/26/24 05:00 AM Code Status & VTE Plan Code Status Full code VTE Prophylaxis Plan VTE Prophylaxis will be ordered: Yes PG Care Time/CCT Total # of Minutes Spent Total Time Spent with Patient: Total time spent is greater than 50% in coordination of care (as documented) at patient's floor/unit and/or counseling patient: Coding Level of Care Code 46874 INT INP/OBS CARE 3/75MIN Diagnoses Ambulatory dysfunction R26.2 Nausea & vomiting R11.2 Urinary tract infection N39.0 Dizziness R42 Chronic deep vein thrombosis (DVT) of right lower extremity, unspecified vein I82.501 DVT location: lower extremity Affected thrombotic vein of extremity: unspecified vein of extremity Chronicity: chronic Laterality: right HTN (hypertension) I10 Brain TIA G45.9 Mixed hyperlipidemia E78.2 Hyperlipidemia type: mixed hyperlipidemia Benign hypertension I10 Lumbar stenosis with neurogenic claudication M48.062 (5) Deep vein thrombosis (DVT) DVT location: lower extremity Affected thrombotic vein of extremity: unspecified vein of extremity Chronicity: chronic Laterality: right Qualified Code(s): I82.501 - Chronic embolism and thrombosis of unspecified deep veins of right lower extremity (8) Hyperlipidemia Hyperlipidemia type: mixed hyperlipidemia Qualified Code(s): E78.2 - Mixed hyperlipidemia
[2024-01-26] MEDS ORDERED: ACETAMINOPHEN 325 MG TAB PO PRN (07:54)
[2024-01-26] MEDS ORDERED: ONDANSETRON INJ 2 MG/ML 2 ML VIAL IV PRN (07:54)
[2024-01-26] MEDS: MAGNESIUM SULFATE / D5W 1 GM/100 ML BAG IV ONE (07:55)
[2024-01-26] MEDS: NSS + 20MEQ KCL 20 MEQ/1,000 ML BAG IV SCH (07:55)
--- NOTE | 2024-01-26 07:57 | Magnetic Resonance Report ---
MR brain wo con HISTORY: 78 years-old Female dizziness; vomiting acute dizziness with nausea and vomiting COMPARISON: Head CT 01/26/2024, brain MRI 01/16/2023 TECHNIQUE: Multiplanar multisequence MRI of the brain was obtained without IV contrast. FINDINGS: No restricted diffusion. Midline structures appear unremarkable. No acute intracranial hemorrhage, mi dline shift, abnormal extra-axial collection, hydrocephalus or intra-axial mass. Unchanged mild ex va cuo ventriculomegaly. Involutional changes with mild scattered T2/FLAIR hyperintense foci throughout the white matter again noted suggestive of chronic microvascular ischemic disease. Sinuses and major arterial flow voids appear patent. Skull, orbits and soft tissues are unremarkable. Prior bilateral repair. Trace right mastoid effusion. The left mastoid air cells and paranasal sinus es are generally clear. IMPRESSION: No acute intracranial abnormality. No acute or subacute infarct. ACT 112: Negative or not required by law. The above report was generated using voice recognition software. It may contain grammatical, syntax o r spelling errors. Electronically signed by: Abdon Longo M.D. 01/26/2024 7:55 AM
[2024-01-26] MEDS: APIXABAN 5 MG TABLET PO SCH (08:40)
--- NOTE | 2024-01-26 08:40 | Magnetic Resonance Report ---
MRI OF THE CERVICAL SPINE WITHOUT CONTRAST CLINICAL HISTORY: ambulatory dysfunction, weakness COMPARISON: CT of the cervical spine January 15, 2023. TECHNIQUE: Utilizing a 1.5 Radha magnet and dedicated coil, multiplanar, multiecho imaging of the ce rvical spine was performed without IV contrast. FINDINGS: Alignment of the cervical spine is anatomic. Vertebral body heights are maintained. No marrow edema o r marrow replacement is present. Cervical cord signal and caliber are normal. There is no intracanali cular mass or fluid collection. Paravertebral soft tissues are unremarkable. There is no prevertebral edema. C2-C3: The central canal and neural foramen are patent. C3-C4: The central canal and left neural foramen are patent. There is moderate to severe right neura l foraminal stenosis due to facet arthrosis and uncovertebral hypertrophy. C4-C5: A small left paracentral disc protrusion is noted. There is mild narrowing of the central can al. The neural foramen are patent. There is mild facet arthrosis. C5-C6: Moderate disc space narrowing is noted. Posterior disc osteophyte complex contacts the ventra l aspect of the cord. There is moderate central canal stenosis. Patent AP diameter of the canal is 8 mm. 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 There is moderate bilateral neural foraminal stenosis. C6-C7: Moderate disc space narrowing is noted. Disc bulge noted with small left paracentral disc pro trusion. There is moderate central canal stenosis. Mild left neural foraminal stenosis present. Right neural foramen is patent. C7-T1: The central canal and neural foramen are patent. IMPRESSION: 1. No acute process within the cervical spine prior MRI. Normal cervical cord signal and caliber. 2. No cervical spine fractures. 3. Moderate multilevel degenerative disc disease and facet arthrosis within the cervical spine, as de tailed above. 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 ACT 112: Negative or not required by law. Electronically signed by: Dre Vargas M.D. 01/26/2024 8:39 AM
--- NOTE | 2024-01-26 09:12 | Electrocardiogram Report ---
Test Reason : Blood Pressure : / mmHG Vent. Rate : 088 BPM Atrial Rate : 088 BPM P-R Int : 160 ms QRS Dur : 074 ms QT Int : 352 ms P-R-T Axes : 047 009 068 degrees QTc Int : 425 ms Normal sinus rhythm Minimal voltage criteria for LVH, may be normal variant Nonspecific ST and T wave abnormality Abnormal ECG When compared with ECG of 15-JAN-2023 14:42, No significant change was found Confirmed by Delroy Cabrera ([id number]) on 01/26/2024 9:11:36 AM Referred By: REFERRED SELF Confirmed By:Dagoberto Cabrera
[2024-01-26] MEDS: dilTIAZem HCL 120 MG CAPCR PO SCH ×2 (12:22→20:38)
[2024-01-26] MEDS: CHOLECALCIFEROL 25 MCG (1000 UNITS) TAB PO SCH ×2 (12:22→20:37)
[2024-01-26] MEDS: ATORVASTATIN 40 MG TAB PO SCH ×2 (12:22→20:37)
[2024-01-26] MEDS: ASPIRIN 81 MG ECTAB PO SCH ×2 (12:22→20:37)
[2024-01-26] MEDS: POLYETHYLENE (MIRALAX) 17 GM PACK PO SCH ×2 (12:22→20:39)
[2024-01-27 07:32] LABS: Basophils # (auto) 0.04 K/uL (0.00-0.20); Basophils % (auto) 0.3 %; Eosinophils # (auto) 0.18 K/uL (0.00-0.50); Eosinophils % (auto) 1.5 %; Hematocrit (blood only) 34.8 % (37.0-47.0); Hemoglobin 11.4 g/dl (12.0-16.0); Immature Granulocytes # (auto) 0.05 K/uL (0.01-0.20); Immature Granulocytes % (auto) 0.4 %; Lymphocytes % (auto) 9.1 %; Mean Corpuscular Hemoglobin 30.9 pg (25.0-34.0); Mean Corpuscular Hgb Conc 32.8 g/dL (32.0-36.0); Mean Corpuscular Volume 94.3 fL (80.0-100.0); Mean Platelet Volume 9.4 fL (9.4-12.4); Monocytes % (auto) 8.3 %; Neutrophils # (auto) 9.69 K/uL (1.40-6.50); Neutrophils % (auto) 80.4 %; Platelet Count 269 K/uL (130-400); RDW Coefficient of Variation 13.2 % (11.5-14.5); RDW Standard Deviation 45.5 fL (36.4-46.3); Red Blood Count 3.69 M/uL (4.20-5.40); White Blood Count 12.06 K/ul (4.8-10.8)
[2024-01-27 07:51] VITALS: RESP 16; TEMP 97.3; O2SAT 91
[2024-01-27] MEDS: cefTRIAXone SODIUM 2,000 MG in DEXTROSE 5 % MINI-B 50 ML IV SCH (08:02)
[2024-01-27 08:03] LABS: Albumin Level 3.3 gm/dl (3.4-5.0); BUN Creatinine Ratio 25.3 (10-20); Calcium 8.6 mg/dl (8.6-10.3); Creatinine Clr Calc Pharmacy 46.5 ml/min; Est GFR (African American) 73.4 ml/min; Est GFR (Non-African American) 63.4 ml/min; Phosphorus 2.5 mg/dl (2.5-4.9); Potassium 3.5 mmol/L (3.5-5.1)
[2024-01-27 10:02] VITALS: BP 161/56; PULSE 81
--- NOTE | 2024-01-27 13:48 | Discharge Summary ---
Date of Service January 27, 2024 Admission HPI Per Admitting Provider The patient is a 78-year-old female with a past medical history including lumbar stenosis with neurogenic claudication with upcoming surgery, right lower extremity DVT, sacroiliitis, hypertension, brain TIA, thyroid nodule, hyperlipidemia, vertigo, IT band syndrome, peripheral neuropathy, short-term memory loss and asthma. The patient reports that she was doing spring cleaning yesterday, moving around a lot of furniture and objects in the house, and shortly thereafter began having the symptoms of severe fatigue, generalized weakness, dizziness with walking and lethargy. She had similar symptoms that prompted an evaluation January 15 and of last year, with negative neurologic workup at that time, and was given a diagnosis of brain TIA. She has not had any symptoms since this occasion. She does report occasional urinary incontinence. She has some mild hearing loss, that does not require hearing aids. She denies ringing in her ears Principal Diagnosis UTI, dizziness Discharge Exam The patient is awake, alert and oriented 3, well developed and well nourished, normocephalic and atraumatic, lying in bed and in no acute distress. HEENT--PERRL, EOMI, mucous membranes and oropharynx mildly dry Neck--supple. No JVD. No bruits. Thyroid normal, trachea midline, no adenopathy. Heart--normal S1 and S2. No murmurs, rubs or gallops. Lungs--clear bilaterally, no respiratory distress, no accessory muscle use. Abdomen--normal bowel sounds and soft. Extremities--no cyanosis or clubbing. No edema. Dermatologic--normal skin turgor, normal color, no abnormal lymph nodes, no rash. Neurologic--cranial nerves II through XII grossly intact. Rheumatologic--normal range of motion. Psychiatric--normal affect. Discharge Data Allergies Allergy/AdvReac Type Severity Reaction Status Date / Time adhesive Allergy Unknown SKIN Verified 01/26/24 08:34 BLISTERS codeine AdvReac Unknown GI UPSET Verified 01/26/24 08:34 Consultations 01/26/24 06:07 ED Decision to Admit Stat Ordered Studies 01/26/24 04:00 CT head/brain wo con Stat 01/26/24 05:25 MRI Brain [MR brain wo con] Stat 01/26/24 06:27 MRI Cervical [MR cervical spine wo con] Stat Hospital Course (1) Ambulatory dysfunction: (2) Nausea & vomiting: (3) Urinary tract infection: (4) Dizziness: (5) Deep vein thrombosis (DVT): (6) HTN (hypertension): (7) Brain TIA: (8) Hyperlipidemia: (9) Benign hypertension: (10) Lumbar stenosis with neurogenic claudication: Plan Ambulatory dysfunction/generalized weakness/progressive fatigue- Primary differential at this point includes neurologic process versus urinary tract infection CT scan of head shows stable ventriculomegaly compared to 01/15/2023, and questions the possibility of NPH MRI brain and MRI cervical spine was within normal limits Symptoms resolved in the hospital Urinary tract infection- Follow urine culture and sensitivity Empiric ceftriaxone 2 g IV daily Discharged on p.o. ciprofloxacin for 5 days Right lower extremity DVT- On chronic apixaban 5 mg p.o. twice daily and will continue Hypertension/hypokalemia- Continue aspirin, diltiazem Hold losartan, allowing some mild permissive hypertension NSS + KCl 20 mill equivalents at 100 mL/h x 1 L Magnesium 1.8, give magnesium sulfate 1 g IV Total Time Total Time Spent Total Time Spent (In Minutes): 35 Discharge Plan Discharge Items Patient Disposition: Home - Self-Care Reason For Visit: AMULATORY DYSF, GENERALIZED WEAKNESS, FATIGUE Discharge Diagnosis: acute UTI Activity: Resume your previous activity Non-emergency contact: Primary Care Provider Call non-emergency contact if: you have any medication questions Follow-up/Referrals: Paula Koo MD [Primary Care Provider] - 02/03/24 11:30 am Diet: Regular Addtl Attending Provider Instructions: please follow up with your regular PCP Pending Studies at Discharge: No Stand-Alone Forms: My [facility], Smoking Cessation Medications and DC Order Prescriptions: New ciprofloxacin HCl 250 mg tablet 250 mg PO BID 5 Days Qty: 10 0RF Continued Eliquis 5 mg tablet 5 mg PO BID Qty: 180 3RF Rx Instructions: Pt not sure if she took the Eliquis before coming to the ER on 01/26/24. Thinks she did but isn't sure. atorvastatin 40 mg tablet 40 mg PO DAILY Qty: 90 3RF diltiazem HCl 120 mg capsule,extended release 24hr 120 mg PO DAILY Qty: 90 3RF losartan 50 mg tablet 50 mg PO DAILY Qty: 90 3RF cholecalciferol (vitamin D3) 50 mcg (2,000 unit) capsule 4,000 units PO DAILY Patient Comments: with largest meal of the day polyethylene glycol 3350 17 gram/dose powder See Rx Instructions PO QAM Rx Instructions: 1.25 teaspoons PO daily in the morning; aspirin 81 mg Tablet,Delayed Release (Dr/Ec) 81 mg PO DAILY Discharge Orders: Discharge Order (Routine); Ordered 01/27/24 Ordered By: Jeri Khan/Other Patient Handouts: Urinary Tract Infections in Women, UTIs Admission Data Admit Date/Time: 01/26/24 06:46 Attending Provider: Jeri Brito Admit Provider: Po Jarquin Primary Care Provider: Paula Koo Other Providers: Po Jarquin Other Interventions: Discharge Summary Assessment (RN) Last Done: 01/27/24 10:00 Coding Level of Care Code 01616 INP/OBS DISCH >30 MIN Diagnoses Ambulatory dysfunction R26.2 Nausea & vomiting R11.2 Urinary tract infection N39.0 Dizziness R42 Chronic deep vein thrombosis (DVT) of right lower extremity, unspecified vein I82.501 DVT location: lower extremity Affected thrombotic vein of extremity: unspecified vein of extremity Chronicity: chronic Laterality: right HTN (hypertension) I10 Brain TIA G45.9 Mixed hyperlipidemia E78.2 Hyperlipidemia type: mixed hyperlipidemia Benign hypertension I10 Lumbar stenosis with neurogenic claudication M48.062 Time Spent (min) 35
== END 2024-01-27 10:53 | disposition home or self-care (01) ==
LOC: SUATTDRO → ED 03:53 → EDINP 03:53 → 2S 07:55
DX: B96.20 Unspecified Escherichia coli [E. coli] as the cause of diseases classified elsewhere; Z82.49 Family history of ischemic heart disease and other diseases of the circulatory system; I82.501 Chronic embolism and thrombosis of unspecified deep veins of right lower extremity; M48.062 Spinal stenosis, lumbar region with neurogenic claudication; Z79.82 Long term (current) use of aspirin; Z86.73 Personal history of transient ischemic attack (TIA), and cerebral infarction without residual deficits; N39.0 Urinary tract infection, site not specified; E87.6 Hypokalemia; Z88.6 Allergy status to analgesic agent; Z79.01 Long term (current) use of anticoagulants; I10 Essential (primary) hypertension; E78.5 Hyperlipidemia, unspecified; G62.9 Polyneuropathy, unspecified; Z79.899 Other long term (current) drug therapy; Z91.09 Other allergy status, other than to drugs and biological substances

== ENCOUNTER 2024-05-08 05:35 | Inpatient (IN) ==
--- NOTE | 2024-04-10 14:15 | PAT Medication Instructions ---
Medication Instructions Date of Service April 10, 2024 Home Medications Medication Instructions Recorded apixaban 5 mg tablet (Eliquis) 5 mg PO BID #180 tabs 11/14/23 Medication List: cholecalciferol (vitamin D3) 50 mcg (2,000 unit) capsule 4,000 units PO HS polyethylene glycol 3350 17 gram/dose oral powder 17 g PO QAM aspirin 81 mg tablet,delayed release 81 mg PO HS apixaban 5 mg tablet (Eliquis) 5 mg PO BID atorvastatin 40 mg tablet 40 mg PO HS diltiazem HCl 120 mg capsule,extended release 24 hr 120 mg PO HS losartan 50 mg tablet 50 mg PO HS MEDICATION INSTRUCTIONS: ASK your prescriber and surgeon aspirin 81 mg tablet,delayed release 81 mg PO HS apixaban 5 mg tablet (Eliquis) 5 mg PO BID DO NOT take the morning of surgery polyethylene glycol 3350 17 gram/dose oral powder 17 g PO QAM Take evening before surgery atorvastatin 40 mg tablet 40 mg PO HS diltiazem HCl 120 mg capsule,extended release 24 hr 120 mg PO HS cholecalciferol (vitamin D3) 50 mcg (2,000 unit) capsule 4,000 units PO HS losartan 50 mg tablet 50 mg PO HS Other Notes Remember: NOTHING TO EAT OR DRINK AFTER MIDNIGHT If you have any questions please call us at [phone] or [phone] or [phone] or [phone]
--- NOTE | 2024-04-16 10:22 | Anesthesiology Consultation ---
Date of Service April 16, 2024 Assessment & Plan (1) Encounter for pre-operative examination: Plan - Case discussed in detail with Dr. Smith who advised patient have neurology evaluation prior to surgery regarding h/o TIAs and head imaging 01/2024. Surgeon's office and patient made aware. Awaiting response from [place] neurology. Chart Review Chart Review: Pending: Refer to Additional Notes / Consult section and Patient seen in Pre Admission Testing Teaching & Discussion Pre-Anesthesia Teaching/Discussion Notes: Instructed NPO after midnight before surgery, except medications with 15 cc of water. Medication instructions provided according to the PAT guidelines. History Surgery Operation Date: 05/08/24 07:15 Proposed Procedures p L4-L5 Lateral Interbody Fusion Along with Cage Placement and Posterior Instrumentation - Karson Ly MD Height/Weight Height: 5 ft 1 in Weight: 64.8 kg Allergies Allergy/AdvReac Type Severity Reaction Status Date / Time adhesive Allergy Unknown SKIN Verified 04/04/24 07:30 BLISTERS codeine AdvReac Unknown GI UPSET Verified 04/04/24 07:30 Medications Home Medications Medication Instructions Recorded Confirmed Last Taken cholecalciferol (vitamin D3) 50 4,000 units PO HS 08/24/19 04/04/24 01/25/24 mcg (2,000 unit) capsule polyethylene glycol 3350 17 17 g PO QA 08/24/19 04/04/24 01/25/24 gram/dose oral powder aspirin 81 mg tablet,delayed 81 mg PO HS 01/15/23 04/04/24 01/25/24 release apixaban 5 mg tablet (Eliquis) 5 mg PO BID #180 tabs 11/14/23 04/04/24 Unknown atorvastatin 40 mg tablet 40 mg PO HS 04/04/24 04/04/24 Unknown diltiazem HCl 120 mg 120 mg PO HS 04/04/24 04/04/24 Unknown capsule,extended release 24 hr losartan 50 mg tablet 50 mg PO HS 04/04/24 04/04/24 Unknown Past Medical History Medical History (Updated 04/16/24 @ 12:55 by Luci Baltazar PA-C) Asthma "Allergy induced with change in seasons" no inhaler Degenerative spondylolisthesis Depression DVT (deep venous thrombosis) 05/2023, taking Eliquis History of COVID-19 (~2022) History of duodenal ulcer many years ago, no issues since History of kidney stones hx of lithotripsy Hyperlipidemia Hypertension controlled, stable per pt Peripheral neuropathy feet Thyroid nodule patient is unsure, "nothing came of it" TIA (transient ischemic attack) January 2023, no deficits Trochanteric bursitis, left hip Urge and stress incontinence Patient denies h/o seizures, heart attack, heart failure, DM, or blood transfusions. Exercise / Class Metabolic Activity II 4-5 Yardwork/Stairs/Walk up hill (denies chest discomfort or shortness of breath with one flight of stairs) Past Family History Family History Mother Myocardial infarction Denies family history of Ovarian cancer Prostate cancer Breast cancer Colorectal cancer Past Surgical History Surgical History Hx of breast surgery Benign lump removed Hx of cataract surgery Hx of eye surgery Cyst Removal on Eye Hx of hysterectomy Past Anesthesia History No Hx of Anesthesia Complications and No Family Hx of Anesthesia Complications History of PONV No Hx of PONV and No Hx of Motion Sickness Social History Smoking Status: Never smoker Do You Dip or Chew Tobacco: No Hx Alcohol Use: Yes Alcohol type: wine alcohol intake frequency: holidays/special occasions only Hx Substance Use: No substance use type: does not use Review of Systems Patient denies chest pain, shortness of breath, dyspnea on exertion, snoring, witnessed apneas, reflux, fever, chills, cough, wheezing, or palpitations. Physical Exam Vital Signs Vitals BP 144/79 P 68 TEMP 98.2 SP02 98% on RA RESP 18 Physical Patient resting comfortably in chair in no acute distress, alert and oriented, responding appropriately throughout visit Full cervical extension range of motion without pain TMD 3.5 finger breadths Mallampati Score 2 Dentition: intact, denies chipped or loose teeth, caps/crowns, implants or bridges Lungs: normal respiratory effort. Good air movement, clear throughout to auscultation, no adventitious breath sounds Cardiac: regular rate and rhythm, no murmurs noted Carotid arteries: negative bruit bilat Lab Results Anesthesia Preop Results Results Anesthesia Widget: WBC 6.31 K/ul (4.8-10.8) 04/16/24 Hgb 13.2 g/dl (12.0-16.0) 04/16/24 Hct 39.4 % (37.0-47.0) 04/16/24 Plt 335 K/uL (130-400) 04/16/24 Na 141 mmol/L (136-145) 04/16/24 K 4.2 mmol/L (3.5-5.1) 04/16/24 Cl 108 mmol/L (98-107) H 04/16/24 CO2 29 mmol/L (21-32) 04/16/24 BUN 16 mg/dl (6-23) 04/16/24 Creat 0.83 mg/dl (0.6-1.2) 04/16/24 Glucose Level 97 mg/dl (70-99(Fasting)) 04/16/24 PT 10.3 Seconds (9.0-12.0) 04/16/24 PTT 25 Seconds (21-31) 04/16/24 INR 0.9 (0.9-1.1) 04/16/24 Blood Type A Positive 04/16/24 Antibody Screen NEGATIVE 04/16/24 Testing Electrocardiogram Date: 01/26/24 NSR, rate 88 bpm Minimal voltage criteria for LVH, may be normal variant Nonspecific ST and T wave abnormality Chest X-Ray Date: 01/26/24 *1view* No acute cardiopulmonary findings. Mild bibasilar opacities which favor atelectasis. Echocardiogram Date: 01/16/23 EF 60-65% Moderate cLVH Grade I diastolic dysfunction Mild tricuspid regurgitation Cervical Spine Date: 01/26/24 MRI 1. No acute process within the cervical spine prior MRI. Normal cervical cord signal and caliber. 2. No cervical spine fractures. 3. Moderate multilevel degenerative disc disease and facet arthrosis within the cervical spine, as detailed above. 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 Other Testing Brain MRI 01/26/24 No acute intracranial abnormality. No acute or subacute infarct. Head CT 01/26/24 1. No evidence of acute intracranial abnormality. 2. Stable mild ventriculomegaly. Likely due to central atrophy. Differential diagnosis includes normal pressure hydrocephalus. Venous doppler study 05/11/23 Right lower extremity DVT Head and neck CTA 01/15/23 No stenosis or dissection within the bilateral common carotid, cervical internal carotid or vertebral arteries. Mild atherosclerotic plaque. No central vessel occlusion. No intracranial aneurysm. Moderate plaque within the intracranial vessels. Mild to moderate stenosis of the bilateral intracranial vertebral arteries.
[2024-05-08] MEDS ORDERED: ROCURONIUM BROMIDE 10 MG/ML 5 ML VIAL IV ONE (06:26)
[2024-05-08] MEDS ORDERED: PROPOFOL IV EMULSION 10 MG/ML 20 ML VIAL IV ONE ×8 (06:26→13:22)
[2024-05-08] MEDS ORDERED: LIDOCAINE 2% 2 ML VIAL/AMP(20MG/ML) INFIL ONE (06:26)
[2024-05-08] MEDS ORDERED: fentaNYL citrate PF 100 MCG/2 ML VIAL ONE (06:26)
[2024-05-08] MEDS: LR 15ML/HR IV SCH (06:29)
[2024-05-08] MEDS: LR 60ML/HR IV SCH (06:29)
[2024-05-08] MEDS ORDERED: ATROPINE SULFATE 0.1 MG/ML 10ML SYR IV PRN (07:08)
[2024-05-08] MEDS ORDERED: LABETALOL HCL IV 5 MG/ML 20ML IV PRN (07:08)
[2024-05-08] MEDS ORDERED: PROMETHAZINE HCL 6.25 MG in SODIUM CHLORIDE 0.9% 50 ML IV PRN (07:08)
[2024-05-08] MEDS ORDERED: ONDANSETRON INJ 2 MG/ML 2 ML VIAL IV PRN ×2 (07:08→15:13)
[2024-05-08] MEDS ORDERED: KETAMINE HCL 10MG/ML SYR ONE (07:31)
[2024-05-08] MEDS ORDERED: REMIFENTANIL HCL 1 MG VIAL IV ONE ×2 (07:31→11:25)
[2024-05-08] MEDS ORDERED: MIDAZOLAM HCL 1 MG/ML 2ML VIAL ONE (07:37)
--- NOTE | 2024-05-08 07:38 | History & Physical Bridge Note ---
Date of Service May 08, 2024 History & Physical Bridge Note I have examined the patient, reviewed the History & Physical and in the interval since the performance of the History & Physical I have noted the following changes of clinical significance: no changes noted
[2024-05-08] MEDS: ceFAZolin 2000MG 2,000 MG/15 ML SYR IV SCH (08:54)
[2024-05-08] MEDS ORDERED: SUGAMMADEX SODIUM 200 MG/2 ML VIAL IV ONE (09:27)
[2024-05-08] MEDS ORDERED: PHENYLEPHRINE 100MCG/ML 10ML SYR IV ONE (10:38)
[2024-05-08] MEDS ORDERED: ePHEDrine sulfate 50 MG/5 ML SYR ONE (10:39)
[2024-05-08] MEDS ORDERED: ceFAZolin 330 MG/ML 1 GM VIAL ONE ×3 (11:03→12:10)
[2024-05-08] MEDS ORDERED: PHENYLEPHRINE HCL 10 MG/ML VIAL ONE (12:10)
[2024-05-08] MEDS: BUPIVACAINE/EPINEPHRINE 0.5% MPF 1:200,000 30 ML VIAL ONE (14:37)
[2024-05-08] MEDS: GELATIN SPONGE 12-7MM ONE (14:37)
[2024-05-08] MEDS: THROMBIN 5000 UNITS KIT ONE (14:37)
[2024-05-08] MEDS: VANCOMYCIN HCL 1000MG/20ML VIAL ONE (14:38)
[2024-05-08] MEDS ORDERED: FAMOTIDINE 20 MG TAB PO PRN (15:13)
[2024-05-08] MEDS ORDERED: LORazepam 0.5 MG TAB PO PRN (15:13)
[2024-05-08] MEDS ORDERED: DO NOT ADMINISTER FLU VACCINE PRN (15:13)
[2024-05-08] MEDS ORDERED: hydrOXYzine HCl 25 MG TAB PO PRN (15:13)
[2024-05-08] MEDS ORDERED: diphenhydrAMINE Capsule 25 MG CAP PO PRN (15:13)
[2024-05-08] MEDS ORDERED: HYDROmorphone INJ 0.5 MG/0.5 ML SYR IV PRN (15:13)
[2024-05-08] MEDS ORDERED: NALOXONE HCL 0.4 MG/1 ML VIAL/CARP IV PRN (15:13)
[2024-05-08] MEDS ORDERED: ALUMINUM/MAGNESIUM SUSP 30 ML UDC PO PRN (15:13)
[2024-05-08] MEDS ORDERED: bisacodyL 10 MG SUPP PR PRN (15:13)
[2024-05-08] MEDS ORDERED: LORazepam 0.5 MG in SYRINGE 0.25 ML IV PRN (15:13)
[2024-05-08] MEDS ORDERED: DO NOT ADMINISTER PNEUMOCOCCAL VACCINE PRN (15:13)
[2024-05-08] MEDS ORDERED: MAGNESIUM HYDROXIDE SUSP 30 ML UDC PO PRN (15:13)
[2024-05-08] MEDS ORDERED: SOD PHOSPHATE/SOD BIPHOSPHATE ENEMA 132 ML BTL PR PRN (15:13)
[2024-05-08] MEDS ORDERED: METOCLOPRAMIDE HCL INJ 5 MG/ML 2 ML VIAL IV PRN (15:13)
--- NOTE | 2024-05-08 15:13 | Post Operative Brief Note ---
PG Immediate Post Op with CF Date of Surgery May 08, 2024 Pre & Post Diagnosis Operation Date: 05/08/24 07:15 Pre-Op Diagnosis: Lumbar Stenosis with Neurogenic Claudication Post-Op Diagnosis: Lumbar Stenosis with Neurogenic Claudication I identified the patient and participated in the time-out.: Yes Procedure Operation Date: 05/08/24 07:15 Actual Procedures p L4-L5 Lateral Interbody Fusion Along with Cage Placement and Posterior Instrumentation, Spinal Cord Monitoring(Not Applicable) - Karson Ly MD Surgeon Karson Ly MD Erp Technical Lead none Estimated Blood Loss 40 Findings Consistent with Post-Op Diagnosis Specimens Specimen Description: none per surgeon Drains Wilkinson Catheter (inserted after induction of anesthesia by Alexia Ordonez RN without difficulty. Removed at end of case per surgeon request.)
[2024-05-08] MEDS: HYDROmorphone INJ 1 MG/ML SYRINGE IV PRN (15:50)
[2024-05-08] MEDS ORDERED: ONDANSETRON INJ 2 MG/ML 2 ML VIAL ONE (15:57)
[2024-05-08] MEDS ORDERED: DEXAMETHASONE SOD INJ 4 MG/ML VIAL ONE (15:57)
--- NOTE | 2024-05-08 16:01 | Fluoroscopy Report ---
FL lumbar spine 2-3V CLINICAL HISTORY: L4-L5 LATERAL INTERBODY TECHNIQUE: 10 views were obtained with the C-arm in the OR with the above procedure. Total fluoroscop y time was 309.4 seconds. Radiation dose was 170.66 mGy. Comparison: Comparison is made to MRI lumbar spine 09/15/2023 FINDINGS/IMPRESSION: Intraoperative images were obtained of L4-L5 posterior fusion. Please correlate with intraoperative fluoroscopy and operative report. ACT 112: Negative or not required by law. Electronically signed by: García Washington M.D. 05/08/2024 4:00 PM
[2024-05-08] MEDS: HYDROmorphone INJ 1 MG/ML SYRINGE ONE (16:11)
--- NOTE | 2024-05-08 17:50 | Anesthesiology Progress Note ---
Date of Service May 08, 2024 Anesthesia Post Procedure Vital Signs Vital Signs: Temp Pulse Pulse Resp BP Pulse Ox O2 Del Method 05/08/24 17:35 36.3 C L 76 14 161/85 H 95 Nasal Cannula 05/08/24 17:25 70 12 157/84 H 98 Nasal Cannula 05/08/24 17:15 75 12 157/87 H 98 Nasal Cannula 05/08/24 17:05 66 16 148/68 H 97 Nasal Cannula 05/08/24 16:55 60 16 148/68 H 96 Nasal Cannula 05/08/24 16:45 60 20 165/68 H 97 Nasal Cannula 05/08/24 16:35 60 12 148/62 H 98 Nasal Cannula 05/08/24 16:25 63 20 137/61 96 Room Air 05/08/24 16:15 66 20 143/71 H 93 Room Air 05/08/24 16:05 66 22 127/67 95 Room Air 05/08/24 15:55 65 20 138/70 98 Oxymask 05/08/24 15:45 69 21 132/80 100 Oxymask 05/08/24 15:35 36 C L 78 20 145/87 H 98 Oxymask 05/08/24 06:07 36.6 C 68 20 183/82 H 98 Room Air O2 Flow Rate 05/08/24 17:35 2 05/08/24 17:25 2 05/08/24 17:15 2 05/08/24 17:05 2 05/08/24 16:55 2 05/08/24 16:45 2 05/08/24 16:35 2 05/08/24 16:25 05/08/24 16:15 05/08/24 16:05 05/08/24 15:55 4 05/08/24 15:45 4 05/08/24 15:35 6 05/08/24 06:07 Pain Intensity Generalized: Pain Intensity: 6 Transfer of Care Handoff Completed per policy Notes Mental Status: alert / awake / arousable and participated in evaluation Patient Amnestic to Procedure: Yes Nausea / Vomiting: adequately controlled Pain: adequately controlled Airway Patency, RR, SpO2: stable & adequate BP & HR: stable & adequate Hydration State: stable & adequate Anesthetic Complications: no major complications apparent and Pt Satisfied with anesthetic care
[2024-05-08] MEDS: HYDROmorphone INJ 1 MG/ML SYRINGE IV SCH (18:39)
[2024-05-08] MEDS: LACTATED RINGER'S 1,000 ML IV SCH (18:52)
[2024-05-08] MEDS: ceFAZolin 1000MG 1,000 MG/7.5 ML SYR IV SCH (18:52)
[2024-05-08] MEDS: ONDANSETRON 4 MG OD TAB PO PRN (19:47)
[2024-05-08] MEDS: LOSARTAN POTASSIUM 50 MG TAB PO SCH (21:13)
[2024-05-08] MEDS: DOCUSATE SODIUM/SENNA 50/8.6MG TAB PO SCH (21:13)
[2024-05-08] MEDS: ACETAMINOPHEN 1,000 MG/100 ML VIAL IV PRN (21:47)
[2024-05-08] MEDS: PROMETHAZINE HCL 12.5 MG in SODIUM CHLORIDE 0.9% 50 ML IV PRN (22:11)
[2024-05-09] MEDS: POLYETHYLENE (MIRALAX) 17 GM PACK PO SCH ×2 (05:59→08:58)
[2024-05-09] MEDS: ACETAMINOPHEN 500 MG TAB PO PRN (08:58)
[2024-05-09 10:08] LABS: Hematocrit (blood only) 40.2 % (37.0-47.0); Hemoglobin 13.5 g/dl (12.0-16.0); Mean Corpuscular Hemoglobin 30.3 pg (25.0-34.0); Mean Corpuscular Hgb Conc 33.6 g/dL (32.0-36.0); Mean Corpuscular Volume 90.3 fL (80.0-100.0); Mean Platelet Volume 9.5 fL (9.4-12.4); Platelet Count 313 K/uL (130-400); RDW Coefficient of Variation 12.9 % (11.5-14.5); RDW Standard Deviation 42.9 fL (36.4-46.3); Red Blood Count 4.45 M/uL (4.20-5.40); White Blood Count 18.97 K/ul (4.8-10.8)
[2024-05-09 10:17] LABS: BUN Creatinine Ratio 19.8 (10-20); Calcium 9.8 mg/dl (8.6-10.3); Creatinine Clr Calc Pharmacy 45.3 ml/min; Est GFR (African American) 74.5 ml/min; Est GFR (Non-African American) 64.3 ml/min; Potassium 3.6 mmol/L (3.5-5.1)
[2024-05-09] MEDS: oxyCODONE/ACETAMINOPHEN 5mg/325mg TAB PO PRN (13:07)
--- NOTE | 2024-05-09 14:05 | Hospitalist Consultation ---
Date of Consultation May 09, 2024 Assessment & Plan (1) Status post lumbar spinal fusion: S/p lumbar spine surgery with Dr. Ly on 05/08 - Perioperative antibiotics, pain control, activity level, and DVT PPx per the primary team. > She does take Eliquis 5 mg p.o. twice daily at home due to history of DVT. > Will defer resuming Eliquis to primary team. - Postop lumbar spine x-ray reveals hardware intact. - Hgb stable at 13.5 on 05/09. No signs of active bleeding. - Leukocytosis of 18.97 on 05/09. Patient was given perioperative antibiotics. > Most recent WBC of 6.31 on 04/16. No immediate preoperative labs to review. > Afebrile, normal heart rate, stable on room air. No obvious signs of infection at this time. > Leukocytosis could be secondary to stress reaction from surgery. Will continue to closely monitor labs and clinical presentation, but will defer antibiotics at this time. - Monitor CBC and BMP in AM. (2) Hypertension: Takes aspirin, diltiazem, losartan at home (3) Hyperlipidemia: Takes atorvastatin at home (4) DVT (deep venous thrombosis): Takes Eliquis 5 mg p.o. twice daily at home due to history of DVT Defer resuming Eliquis to primary team (5) Asthma: Patient reports seasonal allergies. She does not use daily inhaler. No wheezing at the time my evaluation. Continue diphenhydramine as needed for allergic rhinitis. (6) Depression: Takes hydroxyzine, lorazepam at home Plan Disposition: MedSurg Diet: Regular VTE PX: SCDs/teds Thank you for allowing us to participate in the care of this patient, please reach out with any questions or concerns; we will continue to follow. History of Present Illness Reason for Consultation: Medical management Requesting Physician: Karson Ly MD Attending Physician: Karson Ly MD History of Present Illness Adelaida is a pleasant 78-year-old female with PMH including right lower extremity DVT, sacroiliitis, hypertension, brain TIA, thyroid nodule, hyperlipidemia, vertigo, IT band syndrome, peripheral neuropathy, short-term memory loss and asthma. She presented for lumbar spine surgery with Dr. Ly on 05/08/24. Per review of operative report, EBL was listed as 40 cc, and there were no complications noted. Per review of patient's vitals postop, she has been hypertensive; vitals otherwise stable. Patient reports that her pain is 3/10 at time of consult. She describes it as constant aching as well as sharp and stabbing, depending on the position. She notes that she does not like to take pain medications so she was trying to just use Acetaminophen, but her pain became too severe and she took some oxycodone which helped her pain. She reports she is eating and drinking okay since the procedure. Patient reports that she is urinating without problem, but has not yet had a bowel movement. She does not use supplemental oxygen at baseline. No CPAP at night. Patient denies fever, chills, sweats, dizziness, lightheadedness, headache, chest pain, pleuritic CP, SOB, cough, abdominal pain, N/V/D, changes in urinary/bowel habits, saddle anesthesia, or numbness or tingling down the legs. No additional complaints or concerns at this time. Allergies Allergy/AdvReac Type Severity Reaction Status Date / Time adhesive Allergy Unknown SKIN Verified 05/08/24 06:01 BLISTERS codeine AdvReac Unknown GI UPSET Verified 05/08/24 06:01 Home Medications Medication Instructions Recorded Confirmed Type cholecalciferol (vitamin D3) 50 4,000 units PO HS 08/24/19 05/08/24 History mcg (2,000 unit) capsule polyethylene glycol 3350 17 17 g PO QAM 08/24/19 05/08/24 History gram/dose oral powder aspirin 81 mg tablet,delayed 81 mg PO HS 01/15/23 05/08/24 History release apixaban 5 mg tablet (Eliquis) 5 mg PO BID #180 tabs 11/14/23 05/08/24 Rx atorvastatin 40 mg tablet 40 mg PO HS 04/04/24 05/08/24 History diltiazem HCl 120 mg 120 mg PO HS 04/04/24 05/08/24 History capsule,extended release 24 hr losartan 50 mg tablet 50 mg PO HS 04/04/24 05/08/24 History Patient History Medical History History of COVID-19 (~2021) Trochanteric bursitis, left hip History of duodenal ulcer many years ago, no issues since Depression Thyroid nodule patient is unsure, "nothing came of it" Peripheral neuropathy feet History of kidney stones hx of lithotripsy Hyperlipidemia Hypertension controlled, stable per pt Degenerative spondylolisthesis DVT (deep venous thrombosis) 05/2023, taking Eliquis TIA (transient ischemic attack) January 2023, no deficits Asthma "Allergy induced with change in seasons" no inhaler Urge and stress incontinence Surgical History Hx of eye surgery Cyst Removal on Eye Hx of cataract surgery Hx of breast surgery Benign lump removed Hx of hysterectomy Family History Mother Myocardial infarction Denies family history of Ovarian cancer Prostate cancer Breast cancer Colorectal cancer Social History Smoking Status: Never smoker Tobacco Type: Cigarettes Second Hand Exposure: No; Do You Dip or Chew Tobacco: No; Tobacco Cessation Education Requested by Patient: No Hx Alcohol Use: Yes Alcohol type: wine Alcohol Intake Frequency: Monthly or Less Hx Substance Use: No Preferred Language: Danish Communication Ability: Effective Visual Impairment: No Limitations Hearing Ability: Normal 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 Beliefs That Will Affect Care: None marital status: Current Living Situation: Spouse current occupational status: retired How many Children do You have: 3 Other Information That Helps Us Care for You: No Feels Safe at Home: Yes Safety Concerns: Feels Safe At This Time Childhood Exposure to Second-Hand Smoke: Yes Diet: regular caffeine: Yes during the past year weight has: remained stable Dental Care, Regularly: Yes Physical Activity Frequency: Daily Seatbelt Use: always Sunscreen Use: No Do you think of yourself as: straight/heterosexual Gender Identity: Female Assistive Devices: None Physical Exam Physical Exam: General: No acute distress, nondiaphoretic, well-developed, well-nourished. Skin: The skin was without rashes, erythema, edema, or bruising. Cardiac: Regular rate and rhythm without murmurs gallops or rubs. Pulm: Clear to auscultation bilaterally without wheezes, rales or rhonchi. No respiratory distress. 96% on room air. Abdominal: Soft, nontender, nondistended. Bowel sounds present. Neuro: A&O x3. No focal neurological deficits. Results & Data Results & Data Vital Signs (Past 12 Hours) Vital Signs Temp Pulse Pulse Resp BP Pulse Ox O2 Del Method 05/09/24 08:21 36.6 C 90 18 184/91 H 97 Room Air 05/09/24 05:56 36.7 C 94 H 16 178/95 H 97 Room Air Laboratory Results Reviewed CBC Reviewed BMP PG Care Time/CCT Total # of Minutes Spent Total Time Spent with Patient: Total time spent is greater than 50% in coordination of care (as documented) at patient's floor/unit and/or counseling patient: Coding Level of Care Code 40318 IN/OBS CONSULT LVL 3,45M Diagnoses Status post lumbar spinal fusion Z98.1 Hypertension I10 Hyperlipidemia E78.5 DVT (deep venous thrombosis) I82.409 Asthma J45.909 Depression F32.A
[2024-05-10 07:02] LABS: Hematocrit (blood only) 35.4 % (37.0-47.0); Hemoglobin 11.8 g/dl (12.0-16.0); Mean Corpuscular Hemoglobin 30.3 pg (25.0-34.0); Mean Corpuscular Hgb Conc 33.3 g/dL (32.0-36.0); Mean Corpuscular Volume 90.8 fL (80.0-100.0); Mean Platelet Volume 9.8 fL (9.4-12.4); Platelet Count 284 K/uL (130-400); RDW Coefficient of Variation 13.2 % (11.5-14.5); RDW Standard Deviation 43.2 fL (36.4-46.3); White Blood Count 17.13 K/ul (4.8-10.8)
[2024-05-10 07:11] LABS: BUN Creatinine Ratio 32.6 (10-20); Creatinine Clr Calc Pharmacy 43.8 ml/min; Est GFR (African American) 71.4 ml/min; Est GFR (Non-African American) 61.6 ml/min; Potassium 3.6 mmol/L (3.5-5.1)
--- NOTE | 2024-05-10 08:13 | Discharge Summary ---
Date of Service May 10, 2024 Admission HPI (Per Admitting) 78-year-old female admitted for surgery at the L4-5 level due to stenosis and instability. Principal Diagnosis Same as "Discharge Diagnosis" noted below under Discharge Instructions. Discharge Data Consultations 05/08/24 15:13 Consult Hospitalist Routine Procedures Performed Operation Date: 05/08/24 07:15 Actual Procedures p L4-L5 Lateral Interbody Fusion Along with Cage Placement and Posterior Instrumentation, Spinal Cord Monitoring(Not Applicable) - Karson Ly MD Ordered Studies 05/08/24 07:00 [place] lumbar spine 2-3V Routine Hospital Course (1) Status post lumbar spinal fusion: L4-5 lumbar fusion (2) Lumbar stenosis with neurogenic claudication: PG Care Time/CCT Total # of Minutes Spent Total Time Spent with Patient: Total time spent is greater than 50% in coordination of care (as documented) at patient's floor/unit and/or counseling patient: Discharge Plan Discharge Items Patient Disposition: Home - Self-Care Reason For Visit: Lumbar Stenosis with Neurogenic Claudication Discharge Diagnosis: Degenerative spondylolisthesis and stenosis L4-5. Activity: As commented below Lifting: No more than 10 pounds Bathing: May shower/bathe in 3 days Exercise/Sports: Wait until after follow-up appointment Weightbearing: Full weightbearing Non-emergency contact: Surgeon Call non-emergency contact if: your pain is worsening Follow-up/Referrals: Paula Koo MD [Primary Care Provider] - Diet: Regular Addtl Attending Provider Instructions: Restart Eliquis tomorrow, follow-up in 2 weeks. Pending Studies at Discharge: No Stand-Alone Forms: [facility] Xamarin, Smoking Cessation Medications and DC Order Prescriptions: Continued Eliquis 5 mg tablet 5 mg PO BID Qty: 180 3RF Rx Instructions: Pt not sure if she took the Eliquis before coming to the ER on 01/26/24. Thinks she did but isn't sure. cholecalciferol (vitamin D3) 50 mcg (2,000 unit) capsule 4,000 units PO HS Patient Comments: with largest meal of the day polyethylene glycol 3350 17 gram/dose powder 17 g PO QAM Rx Instructions: 1.25 teaspoons PO daily in the morning; aspirin 81 mg Tablet,Delayed Release (Dr/Ec) 81 mg PO HS losartan 50 mg tablet 50 mg PO HS atorvastatin 40 mg tablet 40 mg PO HS diltiazem HCl 120 mg capsule,extended release 24hr 120 mg PO HS Discharge Orders: Discharge Order (Routine); Ordered 05/10/24 Ordered By: Karson Ly Admission Data Admit Date/Time: 05/08/24 15:13 Attending Provider: Karson Ly Admit Provider: Karson Ly Primary Care Provider: Paula Koo Other Providers: William Darby
--- NOTE | 2024-05-10 15:41 | Operative Report ---
PG Post Operative Report Pre & Post Diagnosis Operation Date: 05/08/24 07:15 Pre-Op Diagnosis: Lumbar Stenosis with Neurogenic Claudication Post-Op Diagnosis: Lumbar Stenosis with Neurogenic Claudication I identified the patient and participated in the time-out.: Yes Procedure Operation Date: 05/08/24 07:15 Actual Procedures p L4-L5 Lateral Interbody Fusion Along with Cage Placement and Posterior Instrumentation, Spinal Cord Monitoring(Not Applicable) - Karson Ly MD Surgeon Karson Ly MD Outside Sales Inspector none Estimated Blood Loss 40 Findings Consistent with Post-Op Diagnosis Specimens none Description of Procedure 1. Left L4-5 lateral interbody arthrodesis. (89203) 2. L4-5 lateral interbody cage, NuVasive cohere XL 8 x 18 x 50 mm 10 degrees. (80582) 3. L4-5 posterior nonsegmental instrumentation, NuVasive reline 6.5 mm x 45 mm. (61162) Patient was taken operating room and after good anesthesia patient was posi tioned in a right lateral decubitus left side up positioning on the OR table. After checking all areas for positioning, the patient was secured to the table in routine fashion for a lateral approach to the L4-5 level. Preprepped was performed, adjustments were made, and fluoroscopy was brought in to confirm the alignment on the table with marking the approximate location of the incision followed by prepping and draping. A jejunal incision was made just over the iliac crest in line with the L4-5 level and then advanced down through subcutaneous tissues into the retroperitoneal area was able to palpate the psoas muscle. From here I then inserted the initial dilator and advanced this down to the lateral aspect of the disc base at L4-5 and confirmed its location fluoroscopically and using the monitoring. Adjustments had to be made prior to this with the monitoring system due to difficulties with the NuVasive reline, it is to note that we had to reposition the patient and add new wires before doing this procedure which added additional time. With initial dilators in place, the apparatus for the approach was inserted and then secured to the table. I inspected the lateral aspect of the disc base followed by then inserting the yara. The position was confirmed on fluoroscopy and I moved ahead with the operative procedure. Lateral incision was then made in the annulus followed by then thorough removal of disc material through the interspace. Combination of curettes and jose guadalupe were utilized to remove this disc material down to good endplate bone. Then went through trials selecting the size as noted for the interbody cage which provided some adequate distraction for this level. The cage was then obtained, fusion materials inserted within the cage and also outside the cage anteriorly and posteriorly and this was inserted without any issue with excellent alignment. With this now in place, vancomycin powder was placed, the operative after apparatus was removed without any issue noted. The operative site was then closed after inserting some additional vancomycin powder using combination 0's 2-0 Vicryl sutures and vasquez for the skin. Patient was then repositioned prone on the Lucas top, preprepped was performed followed by bringing in fluoroscopy where I marked for the approximate location for the incisions for the instrumentation. Prep and drape was performed, then began the procedure with 2 oblique longitudinal incisions on either side of the L4-5 interspace. Dissecting down through subcutaneous tissues into the fascia, I was able to then insert the initial Jamshidi needle on either side at the L5 level using combination of fluoroscopy I was able to advance the Jamshidi into the pedicle and vertebral body at L5. This was then removed guidewires were inserted, I then performed a similar procedure at L4 with insertion of the guidewires without issue with excellent position. I then tapped using monitoring in each instance with a 5.5 mm tap followed by insertion of 6.5 millimeter screws, all screws were then tested later and found greater than 20. I then inserted rods and provided some limited distraction on the right side to provide improved alignment, all the setscrews were locked down. The operative site was irrigated and vancomycin was placed after local anesthetic, and the operative site was closed with 0 Vicryl sutures in the fascial layer followed by 2-0 Vicryl sutures and vasquez for skin. Sterile dressing was applied, the patient was taken recovery room in satisfactory condition. I attest to the content of the Intraoperative Record and any orders documented therein. Any exceptions are noted below.
== END 2024-05-10 10:05 | disposition home or self-care (01) | DRG 455 ==
LOC: ASU 05:35 → 3E 15:13